=== PATIENT | female | born 1970 | race Caucasian/White ===

== ENCOUNTER 2025-06-25 14:41 | Outpatient (OUT) | payer OTHER, SELFPAY ==
--- OUTSIDE RECORDS SUMMARY | 2025-06-25 14:47 | XMS_ITS | Encounter Summary ---
Author Organization [facility] Address [address] [place] [address] Care Team Providers Care Briar Shop Supervisor Name Role Phone Hortensia Lees NP Unavailable [phone] Encounter Details Date Type Department Care Team (Late Contact Info) Description 04/16/2025 Abstract [facility] [address] [place] [address] [place] [address] Daniel Mccall DO [address] [place] [address] [place] [address] Social History Tobacco Use Types Packs/Day Years Used Date Smoking Tobacco: Every Day Cigarettes Smokeless Tobacco: Never Alcohol Use Standard Drinks/Week Comments Yes 0 (1 standard drink = 0.6 oz pur e alcohol) Comments Unknown Sex and Gender Information Value Date Recorded Sex Assigned at Not on file Legal Sex Female 6:57 PM EDT Gender Identity Not on file Sexual Orientation Not on file documented as of this encounter Plan of Treatment Upcoming Encounters Date Type Department Care Team (Late st Contact Info) Description 07/18/2025 4:00 PM EDT Consult [facility] [address] [place] [address] [place] [address] Daniel Mccall DO [address] [place] [address] Dr [place] [id number] documented as of this encounter Visit Diagnoses Not on filedocumented in this encounter Care Teams Briar Shop Supervisor Relationship Specialty Start Date End Date Hortensia Lees NP [address] [place] [address] Referring Physician 03/14/24 documented as of this encounter
--- OUTSIDE RECORDS SUMMARY | 2025-06-25 14:47 | XMS_ITS | Clinical Summary ---
Author Organization [facility] Address [address] [place] [address] Care Team Providers Care Website Developer Name Role Phone YoanaDeshaunHortensia ENVELOPE ADJUSTER Unavailable [phone] Allergies Active Allergy Reactions Criticality Noted Date Comments Sulfamethoxazole-Trimetho prim 03/14/2024 Other Reaction(s): MOUTH BURNIGAND PEELING, Mouth ulcers Medications Fetzima 120 MG extended release capsule Take 120 mg by mouth Daily 4 Active levothyroxine (Synthroid, Levoxyl) 100 MCG tablet Take 100 mcg by mouth Daily 3 Active ARIPiprazole (Abilify) 5 MG tablet Take 5 mg by mouth Daily 4 Active ALPRAZolam (Xanax) 0.25 MG tablet Take 0.25 mg by mouth 2 (two) times a day as needed for anxiety 4 Active busPIRone (Buspar) 15 MG tablet Take 15 mg by mouth in the morning and 15 mg in the evening and 15 mg before bedtime. 4 Active albuterol HFA 90 mcg/act inhaler Inhale 2 puffs every 6 (six) hours if needed 4 Active amitriptyline (Elavil) 25 MG tabletIndication s:Migraine without aura and without status migrainosus, not intractable Take 1 tablet (25 mg) by mouth Daily 1/2-1 po at bedtime 30 tablet 2 4 Active rizatriptan (Maxalt) 10 MG tabletIndication s:Migraine without aura and without status migrainosus, not intractable Take 1 tablet (10 mg) by mouth 1 (one) time if needed for migraine (may repeat x1) for up to 9 doses 1 po at onset of migraine, may repeat x1 in 2 hours prn. Max 2/day, 2 days/wk 9 tablet 2 Active Encounters Date Type Department Care Team Description 06/04/2025 4:00 [place] [address] Daniel Mccall DO Pre-op examination; Menorrhagia with regular cycle; Abnormal uterine bleeding (AUB) 04/16/2025 [place] [address] Daniel Mccall DO from Last 3 Months Family History Medical History Relation Name Comments Cancer Father Cancer Mother Relation Name Status Comments Father Mother Social History Tobacco Use Types Packs/Day Years Used Date Smoking Tobacco: Every Day Cigarettes Smokeless Tobacco: Never Tobacco Cessation:Ready to Q uit: Not Asked; Counseling Given: Not Answered Alcohol Use Standard Drinks/Week Comments Yes 0 (1 standard drink = 0.6 oz pur e alcohol) Comments Unknown Sex and Gender Information Value Date Recorded Sex Assigned at Not on file Legal Sex Female 6:57 PM EDT Gender Identity Not on file Sexual Orientation Not on file Last Filed Vital Signs Vital Sign Reading Time Taken Comments Blood Pressure 120/80 06/04/2025 4:07 PM EDT Pulse - - Temperature - - Respiratory Rate 16 03/14/2024 10:57 AM EDT Oxygen Saturation - - Inhaled Oxygen Concentration - - Weight 63.7 kg (140 lb 6.4 oz) 06/04/2025 4:07 P M EDT Height 157.5 cm (5' 2 ) 03/14/2024 10:57 AM EDT Body Mass Index 25.68 03/14/2024 10:57 AM EDT Plan of Treatment Upcoming Encounters Date Type Department Care Team (Late st Contact Info) Description 07/18/2025 4:00 [place] [id number] Daniel Mccall, [address] Austen [place], [place] [id number] Insurance [employer] Care Teams Website Developer Relationship Specialty Start Date End Date Hortensia Lees NP [address] [place] [address] Referring Physician 03/14/24
--- NOTE | 2025-06-25 15:20 | PM.PRESUREVA ---
History of Present Illness History of Present Illness Chief complaint: AUB, Menorrhagia Narrative: Patient presents for presurgical testing. Please see HPI from Dr. Mccall dated June 04, 2025. Review of Systems ROS Narrative Please see ROS from Dr. Mccall dated June 04, 2025. [facility] Medical History (Updated 06/25/25 @ 15:07 by Bela Zamarripa NP) Anemia ?D64.9 - Anemia, unspecified (ICD-10) PTSD (post-traumatic stress disorder) ?F43.10 - Post-traumatic stress disorder, unspecified (ICD-10) Panic attacks ?F41.0 - Panic disorder [episodic paroxysmal anxiety] (ICD-10) Anxiety ?F41.9 - Anxiety disorder, unspecified (ICD-10) Bronchitis ?J40 - Bronchitis, not specified as acute or chronic (ICD-10) Hypothyroidism ?E03.9 - Hypothyroidism, unspecified (ICD-10) Hypothyroidism (acquired) ?E03.9 - Hypothyroidism, unspecified (ICD-10) Migraine ?G43.909 - Migraine, unspecified, not intractable, without status migrainosus (ICD-10) Depression ?F32.A - Depression, unspecified (ICD-10) Cluster headache ?G44.009 - Cluster headache syndrome, unspecified, not intractable (ICD-10) Menorrhagia ?N92.0 - Excessive and frequent menstruation with regular cycle (ICD-10) Abnormal uterine bleeding (AUB) ?N93.9 - Abnormal uterine and vaginal bleeding, unspecified (ICD-10) Surgical History (Updated 06/25/25 @ 15:07 by Bela Zamarripa NP) History of colonoscopy ?Z98.890 - Other specified postprocedural states (ICD-10) History of arthroscopy of knee ?Z98.890 - Other specified postprocedural states (ICD-10) History of tubal ligation ?Z98.51 - Tubal ligation status (ICD-10) Family History (Updated 06/25/25 @ 15:07 by Bela Zamarripa NP) Other Family history of cancer Social History (Updated 06/25/25 @ 15:19 by eBla Zamarripa NP) Within the past year, how often did you have a drink containing alcohol: 2-4 times a month Smoking status: Current every day smoker What tobacco products do you use: cigarettes Cigarettes per day: 30 Years smoked: 20 Smoking pack-years: 30.00 Non-prescribed substance use: denies use and former substance user Non-prescribed substance use details: Past history of opioid abuse, started Suboxone 09/2024 Previous occupational history: Sprinkler Truck Driver/Factory Highest level of school completed/degree received: high school graduate Meds Home Medications and Allergies Home Medications ?Medication ?Instructions ?Recorded ?Confirmed ?Type albuterol sulfate 90 mcg/actuation 2 inh inhalation Q4H PRN shortness 06/25/25 06/25/25 History aerosol inhaler of breath or wheezing alprazolam 0.25 mg tablet 0.25 mg PO BID PRN anxiety 06/25/25 06/25/25 History aripiprazole 15 mg tablet 15 mg PO DAILY 06/25/25 06/25/25 History buprenorphine 2 mg-naloxone 0.5 mg 1 film sublingual Q24H 06/25/25 06/25/25 History sublingual film buspirone 10 mg tablet 10 mg PO TID 06/25/25 06/25/25 History levomilnacipran 120 mg capsule,24 120 mg PO DAILY 06/25/25 06/25/25 History hr,extended release (Fetzima) levothyroxine 100 mcg capsule 100 mcg PO DAILY 06/25/25 06/25/25 History ondansetron 4 mg disintegrating 4 mg PO Q8H PRN nausea and vomiting 06/25/25 06/25/25 History tablet propranolol 20 mg tablet 20 mg PO DAILY 06/25/25 06/25/25 History rizatriptan 10 mg tablet (Maxalt) See Rx Instructions PO .COMPLEX 06/25/25 06/25/25 History trazodone 50 mg tablet 50 mg PO QPM PRN sleep 06/25/25 06/25/25 History zolpidem 5 mg tablet 5 mg PO QPM PRN sleep 06/25/25 06/25/25 History Allergies Allergy/AdvReac Type Severity Reaction Status Date / Time Sulfa (Sulfonamide Allergy mouth Verified 06/25/25 14:51 Antibiotics) ulcers Exam Narrative Exam Narrative: Constitutional: Awake, alert, comfortable, well-appearing, nontoxic, interactive, vital signs as charted Head: Normocephalic, atraumatic Neck: Supple, normal appearance, normal range of motion, no meningeal signs, no lymphadenopathy Respiratory: No respiratory distress, breath sounds clear Cardiovascular: Regular rate and rhythm, strong and regular heart tones Abdomen: Nontender, normal bowel sounds, soft, no CVA tenderness Musculoskeletal: Normal gait, no swelling or edema Skin: No rashes or induration, no lesions, only visible skin inspected Neuro: No neurological deficits, normal sensation Psychiatric: Oriented ?3, normal affect Assessment and Plan Assessment and Plan (1) Menorrhagia: (2) Abnormal uterine bleeding (AUB): Plan D & C hysteroscopy, possible MyoSure scheduled with Dr. Mccall June 29, 2025.
== END 2025-06-25 14:42 | disposition home or self-care (01) ==
PROVIDERS: Visit Provider Obstetrics & Gynecology
DX: Z01.818 Encounter for other preprocedural examination (principal); N93.9 Abnormal uterine and vaginal bleeding, unspecified; N92.0 Excessive and frequent menstruation with regular cycle
CPT/HCPCS: G0463

== ENCOUNTER 2025-06-29 07:13 | Day surgery (SDC) | payer OTHER, SELFPAY ==
--- OUTSIDE RECORDS SUMMARY | 2025-06-05 12:30 | XMS_ITS ---
[facility] [address] [place] [address] Care Team Providers Care Engineer Soils Name Role Phone Lakshmi Morales Primary Care Provider [phone] Yamiletanna Breana Unavailable [phone] REASON FOR VISIT YOAV Yoana, UTI Encounters Encounter Location Date Provider Diagnosis [facility] [address] [place] [address] 06/05/2025 Lakshmi Morales Plan Of Treatment Next Appt Details Provider Name:Breana Toribio Roxiremedios matilde, 10/01/2025 04:15:00 PM, [address] [facility] [place], [address], Progress Notes * IVAN RECIODOB: 1 (55 yo F)Acc No.[id number]:06/05/2025 Progress Notes Patient: IVAN EKYS Provider: Brittney Morales :1970 A ge:55 Y S ex:Female Date:06/05/2025 Address:[address] [place] [phone] Subjective: * Chief Complaints: * 1 . YOAV Yoana, UTI. * Medical History: Objective: * Vitals: Assessment: Plan: * Treatment: * Images: * Electronic signature of Vidhya Morales on 06/29/2025 at 07:15 AM EDT Sign off status: Pending * Provider: Brittney Morales Date: 0 06/05/2025 Generated for Kayla fu/Delicia/eTransmitting on: 0 06/29/2025 07:15 AM EDT
[2025-06-25 15:16] VITALS: BP 128/85; PULSE 72; TEMP 36.3; O2SAT 96; BMI 25.0
--- OUTSIDE RECORDS SUMMARY | 2025-06-29 07:15 | XMS_ITS | Encounter Summary ---
Author Organization [facility] Address [address] [place] [address] Care Team Providers Care Drier Operator Name Role Phone Hortensia Lees NP Unavailable [phone] Encounter Details Date Type Department Care Team (Late Contact Info) Description 04/16/2025 Abstract [facility] [address] [place] [address] [place] [address] Daniel Mccall DO [address] [place] [address] [place] [address] Social History Tobacco Use Types Packs/Day Years [...] 07/18/2025 4:00 PM EDT Consult [facility] [address] [place] [address] [place] [address] Daniel Mccall DO [address] [place] [address] Dr [place] [id number] documented as of this encounter Visit Diagnoses Not on filedocumented in this encounter Care Teams Drier Operator Relationship Specialty Start Date End Date Hortensia Lees NP [address] [place] [address] Referring Physician 03/14/24 documented as of this encounter
--- OUTSIDE RECORDS SUMMARY | 2025-06-29 07:15 | XMS_ITS | Clinical Summary ---
Author Organization [facility] Address [address] [place] [address] Care Team Providers Care Pleating Machine Operator Name Role Phone YoanaDeshaunHortensia MECHANICAL MANUFACTURING ENGINEER Unavailable [phone] Allergies Active Allergy Reactions Criticality Noted Date [...] 06/04/2025 4:00 [place] [address] Daniel Mccall DO Pre-op examination; Menorrhagia with regular cycle; Abnormal uterine bleeding (AUB) 04/16/2025 [place] [id number] Daniel Mccall DO from Last 3 Months [...] 07/18/2025 4:00 [place] [id number] Daniel Mccall, [address] [place] [place], [place] [phone] Insurance [employer] Care Teams Pleating Machine Operator Relationship Specialty Start Date End Date Hortensia Lees NP [address] [place] [address] Referring Physician 03/14/24
--- OUTSIDE RECORDS SUMMARY | 2025-06-29 07:16 | XMS_ITS | Patient Health Record ---
Author Organization [facility] es Address [address] [place] [address] Care Team Providers Care Senior Quality Control Technician Name Role Phone AndrewCristinae Primary Care Provider [phone] Breana Milian Unavailable [phone] Jesus Paniagua Unavailable [phone] Hortensia Coleman Unavailable [phone] Kathy Santamaria Unavailable [phone] Jannette Gonzales Unavailable [phone] Allergies Allergen (clinical drug ingredient) Drug/Non Drug Allergy documented on EMR Reaction Allergy Type Onset Date Status sulfamethoxazole / trimethoprim Bactrim M[facility] Drug Allergy Active Results Component Value Reference Range Notes AURAL - Otolaryngology (HTRx ) Reviewed date:03/07/2025 01:27:18 PM Interpretation: Performing Lab: Notes/Report: Real-Time polymerase chain reaction (TaqMan qPCR) was utilized for detection for all tested organisms and resistance genes. Initiation of antimicrobial therapy prior to testing may affect results and can lead to the detection of non-living microorganisms. Detection of microbes must be correlated with current/recent antibiotic usage and patient signs and symptoms. Microbial sensitivity testing is not performed at this lab. Cylinder Grinder to CFU/mL equivalent thresholds were established based on studies using known CFU/mL urine specimens performed at [facility] in [place], [place]. [facility] ([address], [place] [address]; CLIA# [id number]; [employer] Alanna Herrera, PhD, [facility])). This test was developed, and its performance characteristics determined by [facility]. It has not been cleared or approved by the FDA. However, such approval/clearance is not required, as the laboratory is regulated and qualified under CLIA to perform high-complexity testing. This test is used for clinical purposes and should not be regarded as investigational or for research. *Approximate copies of target nucleic acid per &micro;L (Low: <2,500 copies/&micro;L, Moderate: 2,500-50,000 copies/&micro;L, High: >50,000 copies/&micro;L) National Infectious Disease Consensus Data Potentially effective oral antibiotics, based on presence of detected microbes, antimicrobial resistance genes, and national antimicrobial sensitivity data (see Summary Antibiogram). mecA 28.592 23.000 - 31.199 ppm mecA Detected 23.000 - 31.199 ppm ermB, C; mefA 21.897 23.000 - 27.611 ppm ermB, C; mefA Detected 23.000 - 27.611 ppm Ca albicans, glabrata, parapsilosis, tropicalis 0.000 19.961 - 24.689 ppm Ca albicans, glabrata, parapsilosis, tropicalis Not Detected 19.961 - 24.689 ppm Aspergillus flavus, fumigatus, niger, terreus 0.000 23.000 - 30.981 ppm Aspergillus flavus, fumigatus, niger, terreus Not Detected 23.000 - 30.981 ppm Streptococcus pyogenes (Grou p A strep) 0.000 19.961 - 24.689 ppm Streptococcus pyogenes (Grou p A strep) Not Detected 19.961 - 24.689 ppm Streptococcus pneumoniae 0.000 19.961 - 24.689 ppm Streptococcus pneumoniae Not Detected 19.961 - 24.689 ppm Streptococcus agalactiae (Group B Strep) 0.000 19.961 - 24.689 ppm Streptococcus agalactiae (Group B Strep) Not Detected 19.961 - 24.689 ppm Staphylococcus aureus (MRSA) 14.673 19.961 - 24. 689 ppm Staphylococcus aureus (MRSA) Detected 19.961 - 24. 689 ppm Pseudomonas aeruginosa 0.000 19.961 - 24.689 pp m Pseudomonas aeruginosa Not Detected 19.961 - 24.689 pp m Proteus mirabilis, vulgaris 0.000 19.961 - 24.6 89 ppm Proteus mirabilis, vulgaris Not Detected 19.961 - 24.6 89 ppm Moraxella catarrhalis 0.000 19.961 - 24.689 ppm Moraxella catarrhalis Not Detected 19.961 - 24.689 ppm Klebsiella pneumoniae, oxytoca 0.000 19.961 - 24.689 ppm Klebsiella pneumoniae, oxytoca Not Detected 19.961 - 24.689 ppm Varicella zoster virus (Maegan n Herpesvirus 3) 0.000 23.000 - 31.749 ppm Varicella zoster virus (Maegan n Herpesvirus 3) Not Detected 23.000 - 31.749 ppm Herpes simplex virus 1, 2 0.000 23.000 - 30.405 ppm Herpes simplex virus 1, 2 Not Detected 23.000 - 30.405 ppm Haemophilus influenzae 0.000 19.961 - 24.689 pp m Haemophilus influenzae Not Detected 19.961 - 24.689 pp m Fusobacterium nucleatum, necrophorum 0.000 19.961 - 24.689 ppm Fusobacterium nucleatum, necrophorum Not Detected 19.961 - 24.689 ppm Escherichia coli 0.000 19.961 - 24.689 ppm Escherichia coli Not Detected 19.961 - 24.689 ppm Enterobacter aerogenes, cloacae 0.000 19.961 - 24.689 ppm Enterobacter aerogenes, cloacae Not Detected 19.961 - 24.689 ppm Stella-Hunter virus 0.000 23.000 - 30.191 ppm Stella-Hunter virus Not Detected 23.000 - 30.191 ppm Adenovirus (AdenovirusCombo_3) 0.000 23.000 - 32.147 ppm Adenovirus (AdenovirusCombo_3) Not Detected 23.000 - 32.147 ppm Cutibacterium (Propionibacterium) acnes 0.000 19.961 - 24.689 ppm Cutibacterium (Propionibacterium) acnes Not Detected 19.961 - 24.689 ppm Enterococcus faecalis, faecium 0.000 19.961 - 24.689 ppm Enterococcus faecalis, faecium Not Detected 19.961 - 24.689 ppm Enterovirus (montero) 0.000 23.000 - 31.169 ppm Enterovirus (montero) Not Detected 23.000 - 31.169 ppm Fusarium oxysporum, Neocosmospora solani 0.000 23.000 - 30.331 ppm Fusarium oxysporum, Neocosmospora solani Not Detected 23.000 - 30.331 ppm Cytomegalovirus (Human Herpesvirus 5) 0.000 23.000 - 31.046 ppm Cytomegalovirus (Human Herpesvirus 5) Not Detected 23.000 - 31.046 ppm tet B, tet M 23.616 23.000 - 27.778 ppm tet B, tet M Detected 23.000 - 27.778 ppm Vitamin D 25 Hydroxy Reviewed date:05/03/2025 05:45:12 PM Interpretation: Performing Lab: Notes/Report: Vit B12 Reviewed date:05/03/2025 05:42:09 PM Interpretation: Performing Lab: Notes/Report: Testosterone F&T Reviewed date:05/03/2025 05:42:57 PM Interpretation: Performing Lab: Notes/Report: T4 & TSH Reviewed date:05/03/2025 05:41:37 PM Interpretation: Performing Lab: Notes/Report: T3 Total Reviewed date:05/03/2025 05:42:31 PM Interpretation: Performing Lab: Notes/Report: Progesterone Reviewed date:05/03/2025 05:44:28 PM Interpretation: Performing Lab: Notes/Report: Magnesium Reviewed date:05/03/2025 05:43:16 PM Interpretation: Performing Lab: Notes/Report: FSH and LH Reviewed date:05/03/2025 05:43:44 PM Interpretation: Performing Lab: Notes/Report: Estradiol Reviewed date:05/03/2025 05:44:50 PM Interpretation: Performing Lab: Notes/Report: Cortisol Reviewed date:05/03/2025 05:44:06 PM Interpretation: Performing Lab: Notes/Report: CMP Reviewed date:05/03/2025 05:41:00 PM Interpretation: Performing Lab: Notes/Report: Urinalysis un-automated Reviewed date:11/16/2024 05:28:49 PM Interpretation: Performing Lab: Notes/Report: Urine-Color yellow Appearance slightly cloudy Specific [place] 1.005 pH 7.5 Glucose neg Protein neg Occult Blood neg Bilirubin neg Urobilinogen,Semi-Qn 0.2 Nitrite, Urine neg Ketones neg WBC Esterase neg Urinalysis un-automated Reviewed date:01/29/2025 03:30:07 PM Interpretation: Performing Lab: Notes/Report: Urine-Color yellow Appearance cloudy Specific [place] 1.005 pH 7.5 Glucose neg Protein neg Occult Blood neg Bilirubin neg Urobilinogen,Semi-Qn 0.2 Nitrite, Urine neg Ketones neg WBC Esterase mod GNURI - Complicated Genitour inary Infection (HTRx) Reviewed date:11/23/2024 01:19:37 PM Interpretation: Performing Lab: Notes/Report: Real-Time polymerase chain reaction (TaqMan qPCR) was utilized for detection for all tested organisms and resistance genes. Initiation of antimicrobial therapy prior to testing may affect results and can lead to the detection of non-living microorganisms. Detection of microbes must be correlated with current/recent antibiotic usage and patient signs and symptoms. Microbial sensitivity testing is not performed at this lab. Cylinder Grinder to CFU/mL equivalent thresholds were established based on studies using known CFU/mL urine specimens performed at [facility] in [place], [place]. Testing performed by [facility] [employer] [facility] ([address] [facility] [place] [address]; CLIA# [id number]; [employer] Alanna Herrera, PhD, [facility])). This test was developed, and its performance characteristics determined by [employer]. It has not been cleared or approved by the FDA. However, such approval/clearance is not required, as the laboratory is regulated and qualified under CLIA to perform high-complexity testing. This test is used for clinical purposes and should not be regarded as investigational or for research. *Approximate copies of target nucleic acid per &micro;L (Low: <2,500 copies/&micro;L, Moderate: 2,500-50,000 copies/&micro;L, High: >50,000 copies/&micro;L) National Infectious Disease Consensus Data Potentially effective oral antibiotics, based on presence of detected microbes, antimicrobial resistance genes, and national antimicrobial sensitivity data (see Summary Antibiogram). Acinetobacter baumannii 0.000 19.961 - 24.689 p pm Acinetobacter baumannii Not Detected 19.961 - 24.689 p pm Atopobium vaginae 29.625 19.961 - 24.689 ppm Atopobium vaginae Detected 19.961 - 24.689 ppm BVAB 2,3 (bacterial vaginosi s associated bacteria 2, 3); Mobiluncus spp 0.000 19.961 - 24.689 ppm BVAB 2,3 (bacterial vaginosi s associated bacteria 2, 3); Mobiluncus spp Not Detected 19.961 - 24.689 ppm Ca albicans, parapsilosis, tropicalis 0.000 19.961 - 30.770 ppm Ca albicans, parapsilosis, tropicalis Not Detected 19.961 - 30.770 ppm Ca glabrata (Nakaseomyces glabratus) 0.000 23.000 - 32.138 ppm Ca glabrata (Nakaseomyces glabratus) Not Detected 23.000 - 32.138 ppm Ca krusei (Pichia kudriavzevii) 0.000 23.000 - 32.271 ppm Ca krusei (Pichia kudriavzevii) Not Detected 23.000 - 32.271 ppm Chlamydia trachomatis 0.000 23.000 - 31.467 ppm Chlamydia trachomatis Not Detected 23.000 - 31.467 ppm Citrobacter freundii 0.000 23.000 - 31.881 ppm Citrobacter freundii Not Detected 23.000 - 31.881 ppm Enterobacter aerogenes, cloacae 0.000 23.000 - 31.535 ppm Enterobacter aerogenes, cloacae Not Detected 23.000 - 31.535 ppm Enterococcus faecalis, faecium 0.000 26.000 - 31.575 ppm Enterococcus faecalis, faecium Not Detected 26.000 - 31.575 ppm Escherichia coli 0.000 23.000 - 28.500 ppm Escherichia coli Not Detected 23.000 - 28.500 ppm Gardnerella vaginalis 0.000 19.961 - 24.689 ppm Gardnerella vaginalis Not Detected 19.961 - 24.689 ppm Klebsiella pneumoniae, oxytoca 0.000 23.000 - 30.500 ppm Klebsiella pneumoniae, oxytoca Not Detected 23.000 - 30.500 ppm Megasphaera (Types 1, 2) 0.000 19.961 - 24.689 ppm Megasphaera (Types 1, 2) Not Detected 19.961 - 24.689 ppm Morganella morganii 0.000 19.961 - 24.689 ppm Morganella morganii Not Detected 19.961 - 24.689 ppm Neisseria gonorrhoeae 0.000 23.000 - 32.117 ppm Neisseria gonorrhoeae Not Detected 23.000 - 32.117 ppm Proteus mirabilis, vulgaris 0.000 23.000 - 28.5 00 ppm Proteus mirabilis, vulgaris Not Detected 23.000 - 28.5 00 ppm Pseudomonas aeruginosa 0.000 23.000 - 28.500 pp m Pseudomonas aeruginosa Not Detected 23.000 - 28.500 pp m Serratia marcescens 0.000 23.000 - 31.204 ppm Serratia marcescens Not Detected 23.000 - 31.204 ppm Staphylococcus aureus 0.000 26.000 - 30.902 ppm Staphylococcus aureus Not Detected 26.000 - 30.902 ppm Streptococcus agalactiae (Group B Strep) 0.000 26.000 - 32.222 ppm Streptococcus agalactiae (Group B Strep) Not Detected 26.000 - 32.222 ppm Streptococcus pyogenes (Grou p A strep) 0.000 19.961 - 24.689 ppm Streptococcus pyogenes (Grou p A strep) Not Detected 19.961 - 24.689 ppm Trichomonas vaginalis 0.000 23.000 - 32.119 ppm Trichomonas vaginalis Not Detected 23.000 - 32.119 ppm Staphylococcus epidermidis, haemolyticus, lugdunensis 0.000 19.961 - 24.689 ppm Staphylococcus epidermidis, haemolyticus, lugdunensis Not Detected 19.961 - 24.689 ppm Staphylococcus saprophyticus 0.000 19.961 - 24. 689 ppm Staphylococcus saprophyticus Not Detected 19.961 - 24. 689 ppm Mycoplasma genitalium 0.000 19.961 - 24.689 ppm Mycoplasma genitalium Not Detected 19.961 - 24.689 ppm Mycoplasma hominis 0.000 19.961 - 24.689 ppm Mycoplasma hominis Not Detected 19.961 - 24.689 ppm Ureaplasma parvum 0.000 19.961 - 24.689 ppm Ureaplasma parvum Not Detected 19.961 - 24.689 ppm Ureaplasma urealyticum 0.000 19.961 - 24.689 pp m Ureaplasma urealyticum Not Detected 19.961 - 24.689 pp m Vitamin D 25 Hydroxy Reviewed date:12/31/2024 10:20:32 AM Interpretation: Performing Lab: Notes/Report: Original Ordering Provider: [place] [address] [address] [facility] CALCIDIOL 60.1 30.0-100.0 ng/mL Performing Lab see note [facility] unless otherwise specified [address] [address] Vit B12 Reviewed date:12/31/2024 10:20:32 AM Interpretation: Performing Lab: Notes/Report: Original Ordering Provider: [place] [address] [address] [facility] COBALAMINS 1207 50-1500 pg/mL Performing Lab see note [facility] unless otherwise specified [address] [place] [address] T4 & TSH Reviewed date:12/31/2024 10:20:32 AM Interpretation: Performing Lab: Notes/Report: Original Ordering Provider: [place] [address] [address] [facility] THYROXINE 7.3 4.6-9.1 microgram/dL THYROTROPIN 11.86 0.34-5.60 mcIU/mL Performing Lab see note [facility] unless otherwise specified [address] [place], [place] [id number] Progesterone Reviewed date:12/31/2024 10:20:32 AM Interpretation: Performing Lab: Notes/Report: [facility] [address] [id number] Original Ordering Provider: ABAD IRVIN Progesterone Lvl 0.47 'F NON FOLLICULAR = 0.10 - 0.60' 'LUTEAL = 3.00 - 17.5' 'MIDLUTEAL = 3.30 - 18.6' 'POST-MENOPAUSE = 0.10 - 0.40' '-FIRST TRIMESTER = 8.30 - 66.5' 'SECOND TRIMESTER = 18.9 - 66.1' 'THIRD TRIMESTER = 35.8 - 312.4' 'MALES = 0.14 - 2.06' Performing Lab see note [facility] unless otherwise specified [address] [address] Magnesium Reviewed date:12/31/2024 10:20:32 AM Interpretation: Performing Lab: Notes/Report: [facility] [address] [place] [address] Original Ordering Provider: ABAD IRVIN MAGNESIUM 1.9 1.3-2.4 mg/dL Performing Lab see note [facility] unless otherwise specified [address] [address] eGFR Reviewed date:12/31/2024 10:20:32 AM Interpretation: Performing Lab: Notes/Report: [facility] [address] [place] [address] Original Ordering Provider: ABAD IRVIN eGFR 67 >=59 mL/min/1.73 m2 Performing Lab see note [facility] unless otherwise specified [address] [address] CMP Reviewed date:12/31/2024 10:20:32 AM Interpretation: Performing Lab: Notes/Report: [facility] [address] [place] [address] Original Ordering Provider: ABAD IRVIN GLUCOSE 90 55-199 mg/dL UREA NITROGEN 9 5-21 mg/dL CREATININE 1.0 0.5-1.3 mg/dL CALCIUM 8.9 8.9-11.1 mg/dL SODIUM 136 135-145 mmol/L POTASSIUM 4.3 3.5-5.3 mmol/L CHLORIDE 103 101-111 mmol/L CARBON DIOXIDE 26 21-31 mmol/L ALKALINE PHOSPHATASE 107 21-98 Int._Unit/L BILIRUBIN 0.4 0.0-1.1 mg/dL ALBUMIN 4.2 3.3-5.0 gm/dL PROTEIN 7.1 6.0-7.8 gm/dL ALANINE AMINOTRANSFERASE 16 6-46 Int._Unit/L ASPARTATE AMINOTRANSFERASE 21 5-43 Int._Unit /L UREA NITROGEN/CREATININE 9 10-20 No Units ANION GAP 11 6-16 mEq/L GLOBULIN 2.9 1.4-4.0 gm/dL ALBUMIN/GLOBULIN 1.4 1.1-2.2 Performing Lab see note [facility] - [facility] unless otherwise specified [address] [place] [address] GNURI - Complicated Genitour inary Infection (HTRx) Reviewed date:01/30/2025 01:08:41 PM Interpretation: Performing Lab: Notes/Report: Real-Time polymerase chain reaction (TaqMan qPCR) was utilized for detection for all tested organisms and resistance genes. Initiation of antimicrobial therapy prior to testing may affect results and can lead to the detection of non-living microorganisms. Detection of microbes must be correlated with current/recent antibiotic usage and patient signs and symptoms. Microbial sensitivity testing is not performed at this lab. Cylinder Grinder to CFU/mL equivalent thresholds were established based on studies using known CFU/mL urine specimens performed at [facility] in [place], [place]. Testing performed by [facility] ([address] [place] [address]; CLIA# [id number]; [employer] Alanna Herrera, PhD, [facility])). This test was developed, and its performance characteristics determined by [employer]. It has not been cleared or approved by the FDA. However, such approval/clearance is not required, as the laboratory is regulated and qualified under CLIA to perform high-complexity testing. This test is used for clinical purposes and should not be regarded as investigational or for research. *Approximate copies of target nucleic acid per &micro;L (Low: <2,500 copies/&micro;L, Moderate: 2,500-50,000 copies/&micro;L, High: >50,000 copies/&micro;L) National Infectious Disease Consensus Data Potentially effective oral antibiotics, based on presence of detected microbes, antimicrobial resistance genes, and national antimicrobial sensitivity data (see Summary Antibiogram). Acinetobacter baumannii 0.000 19.961 - 24.689 p pm Acinetobacter baumannii Not Detected 19.961 - 24.689 p pm Atopobium vaginae 29.296 19.961 - 24.689 ppm Atopobium vaginae Detected 19.961 - 24.689 ppm BVAB 2,3 (bacterial vaginosi s associated bacteria 2, 3); Mobiluncus spp 0.000 19.961 - 24.689 ppm BVAB 2,3 (bacterial vaginosi s associated bacteria 2, 3); Mobiluncus spp Not Detected 19.961 - 24.689 ppm Ca albicans, parapsilosis, tropicalis 0.000 19.961 - 30.770 ppm Ca albicans, parapsilosis, tropicalis Not Detected 19.961 - 30.770 ppm Ca glabrata (Nakaseomyces glabratus) 0.000 23.000 - 32.138 ppm Ca glabrata (Nakaseomyces glabratus) Not Detected 23.000 - 32.138 ppm Ca krusei (Pichia kudriavzevii) 0.000 23.000 - 32.271 ppm Ca krusei (Pichia kudriavzevii) Not Detected 23.000 - 32.271 ppm Chlamydia trachomatis 0.000 23.000 - 31.467 ppm Chlamydia trachomatis Not Detected 23.000 - 31.467 ppm Citrobacter freundii 0.000 23.000 - 31.881 ppm Citrobacter freundii Not Detected 23.000 - 31.881 ppm Enterobacter aerogenes, cloacae 0.000 23.000 - 31.535 ppm Enterobacter aerogenes, cloacae Not Detected 23.000 - 31.535 ppm Enterococcus faecalis, faecium 0.000 26.000 - 31.575 ppm Enterococcus faecalis, faecium Not Detected 26.000 - 31.575 ppm Escherichia coli 0.000 23.000 - 28.500 ppm Escherichia coli Not Detected 23.000 - 28.500 ppm Gardnerella vaginalis 0.000 19.961 - 24.689 ppm Gardnerella vaginalis Not Detected 19.961 - 24.689 ppm Klebsiella pneumoniae, oxytoca 0.000 23.000 - 30.500 ppm Klebsiella pneumoniae, oxytoca Not Detected 23.000 - 30.500 ppm Megasphaera (Types 1, 2) 0.000 19.961 - 24.689 ppm Megasphaera (Types 1, 2) Not Detected 19.961 - 24.689 ppm Morganella morganii 0.000 19.961 - 24.689 ppm Morganella morganii Not Detected 19.961 - 24.689 ppm Neisseria gonorrhoeae 0.000 23.000 - 32.117 ppm Neisseria gonorrhoeae Not Detected 23.000 - 32.117 ppm Proteus mirabilis, vulgaris 0.000 23.000 - 28.5 00 ppm Proteus mirabilis, vulgaris Not Detected 23.000 - 28.5 00 ppm Pseudomonas aeruginosa 0.000 23.000 - 28.500 pp m Pseudomonas aeruginosa Not Detected 23.000 - 28.500 pp m Serratia marcescens 0.000 23.000 - 31.204 ppm Serratia marcescens Not Detected 23.000 - 31.204 ppm Staphylococcus aureus 0.000 26.000 - 30.902 ppm Staphylococcus aureus Not Detected 26.000 - 30.902 ppm Streptococcus agalactiae (Group B Strep) 0.000 26.000 - 32.222 ppm Streptococcus agalactiae (Group B Strep) Not Detected 26.000 - 32.222 ppm Streptococcus pyogenes (Grou p A strep) 0.000 19.961 - 24.689 ppm Streptococcus pyogenes (Grou p A strep) Not Detected 19.961 - 24.689 ppm Trichomonas vaginalis 26.319 23.000 - 32.119 ppm Trichomonas vaginalis Detected 23.000 - 32.119 ppm mecA 27.917 23.000 - 31.199 ppm mecA Detected 23.000 - 31.199 ppm tet B, tet M 26.723 23.000 - 27.778 ppm tet B, tet M Detected 23.000 - 27.778 ppm Staphylococcus coagulase-negative spp (Methicillin Resistant, MRSE) 28.837 19.961 - 24.689 ppm Staphylococcus coagulase-negative spp (Methicillin Resistant, MRSE) Detected 19.961 - 24.689 ppm Staphylococcus saprophyticus 0.000 19.961 - 24. 689 ppm Staphylococcus saprophyticus Not Detected 19.961 - 24. 689 ppm Mycoplasma genitalium 0.000 19.961 - 24.689 ppm Mycoplasma genitalium Not Detected 19.961 - 24.689 ppm Mycoplasma hominis 0.000 19.961 - 24.689 ppm Mycoplasma hominis Not Detected 19.961 - 24.689 ppm Ureaplasma parvum 0.000 19.961 - 24.689 ppm Ureaplasma parvum Not Detected 19.961 - 24.689 ppm Ureaplasma urealyticum 0.000 19.961 - 24.689 pp m Ureaplasma urealyticum Not Detected 19.961 - 24.689 pp m GNURI - Complicated Genitour inary Infection (HTRx) Reviewed date:01/30/2025 01:08:41 PM Interpretation: Performing Lab: Notes/Report: Real-Time polymerase chain reaction (TaqMan qPCR) was utilized for detection for all tested organisms and resistance genes. Initiation of antimicrobial therapy prior to testing may affect results and can lead to the detection of non-living microorganisms. Detection of microbes must be correlated with current/recent antibiotic usage and patient signs and symptoms. Microbial sensitivity testing is not performed at this lab. Cylinder Grinder to CFU/mL equivalent thresholds were established based on studies using known CFU/mL urine specimens performed at [facility] in [place], [place]. Testing performed by [facility] [employer] [facility] ([address] [facility], [place] [address]; CLIA# [id number]; [employer] Alanna Herrera, PhD, [facility])). This test was developed, and its performance characteristics determined by [facility] [employer] [facility]. It has not been cleared or approved by the FDA. However, such approval/clearance is not required, as the laboratory is regulated and qualified under CLIA to perform high-complexity testing. This test is used for clinical purposes and should not be regarded as investigational or for research. *Approximate copies of target nucleic acid per &micro;L (Low: <2,500 copies/&micro;L, Moderate: 2,500-50,000 copies/&micro;L, High: >50,000 copies/&micro;L) National Infectious Disease Consensus Data Potentially effective oral antibiotics, based on presence of detected microbes, antimicrobial resistance genes, and national antimicrobial sensitivity data (see Summary Antibiogram). Acinetobacter baumannii 0.000 19.961 - 24.689 p pm Acinetobacter baumannii Not Detected 19.961 - 24.689 p pm Atopobium vaginae 29.296 19.961 - 24.689 ppm Atopobium vaginae Detected 19.961 - 24.689 ppm BVAB 2,3 (bacterial vaginosi s associated bacteria 2, 3); Mobiluncus spp 0.000 19.961 - 24.689 ppm BVAB 2,3 (bacterial vaginosi s associated bacteria 2, 3); Mobiluncus spp Not Detected 19.961 - 24.689 ppm Ca albicans, parapsilosis, tropicalis 0.000 19.961 - 30.770 ppm Ca albicans, parapsilosis, tropicalis Not Detected 19.961 - 30.770 ppm Ca glabrata (Nakaseomyces glabratus) 0.000 23.000 - 32.138 ppm Ca glabrata (Nakaseomyces glabratus) Not Detected 23.000 - 32.138 ppm Ca krusei (Pichia kudriavzevii) 0.000 23.000 - 32.271 ppm Ca krusei (Pichia kudriavzevii) Not Detected 23.000 - 32.271 ppm Chlamydia trachomatis 0.000 23.000 - 31.467 ppm Chlamydia trachomatis Not Detected 23.000 - 31.467 ppm Citrobacter freundii 0.000 23.000 - 31.881 ppm Citrobacter freundii Not Detected 23.000 - 31.881 ppm Enterobacter aerogenes, cloacae 0.000 23.000 - 31.535 ppm Enterobacter aerogenes, cloacae Not Detected 23.000 - 31.535 ppm Enterococcus faecalis, faecium 0.000 26.000 - 31.575 ppm Enterococcus faecalis, faecium Not Detected 26.000 - 31.575 ppm Escherichia coli 0.000 23.000 - 28.500 ppm Escherichia coli Not Detected 23.000 - 28.500 ppm Gardnerella vaginalis 0.000 19.961 - 24.689 ppm Gardnerella vaginalis Not Detected 19.961 - 24.689 ppm Klebsiella pneumoniae, oxytoca 0.000 23.000 - 30.500 ppm Klebsiella pneumoniae, oxytoca Not Detected 23.000 - 30.500 ppm Megasphaera (Types 1, 2) 0.000 19.961 - 24.689 ppm Megasphaera (Types 1, 2) Not Detected 19.961 - 24.689 ppm Morganella morganii 0.000 19.961 - 24.689 ppm Morganella morganii Not Detected 19.961 - 24.689 ppm Neisseria gonorrhoeae 0.000 23.000 - 32.117 ppm Neisseria gonorrhoeae Not Detected 23.000 - 32.117 ppm Proteus mirabilis, vulgaris 0.000 23.000 - 28.5 00 ppm Proteus mirabilis, vulgaris Not Detected 23.000 - 28.5 00 ppm Pseudomonas aeruginosa 0.000 23.000 - 28.500 pp m Pseudomonas aeruginosa Not Detected 23.000 - 28.500 pp m Serratia marcescens 0.000 23.000 - 31.204 ppm Serratia marcescens Not Detected 23.000 - 31.204 ppm Staphylococcus aureus 0.000 26.000 - 30.902 ppm Staphylococcus aureus Not Detected 26.000 - 30.902 ppm Streptococcus agalactiae (Group B Strep) 0.000 26.000 - 32.222 ppm Streptococcus agalactiae (Group B Strep) Not Detected 26.000 - 32.222 ppm Streptococcus pyogenes (Grou p A strep) 0.000 19.961 - 24.689 ppm Streptococcus pyogenes (Grou p A strep) Not Detected 19.961 - 24.689 ppm Trichomonas vaginalis 26.319 23.000 - 32.119 ppm Trichomonas vaginalis Detected 23.000 - 32.119 ppm mecA 27.917 23.000 - 31.199 ppm mecA Detected 23.000 - 31.199 ppm tet B, tet M 26.723 23.000 - 27.778 ppm tet B, tet M Detected 23.000 - 27.778 ppm Staphylococcus coagulase-negative spp (Methicillin Resistant, MRSE) 28.837 19.961 - 24.689 ppm Staphylococcus coagulase-negative spp (Methicillin Resistant, MRSE) Detected 19.961 - 24.689 ppm Staphylococcus saprophyticus 0.000 19.961 - 24. 689 ppm Staphylococcus saprophyticus Not Detected 19.961 - 24. 689 ppm Mycoplasma genitalium 0.000 19.961 - 24.689 ppm Mycoplasma genitalium Not Detected 19.961 - 24.689 ppm Mycoplasma hominis 0.000 19.961 - 24.689 ppm Mycoplasma hominis Not Detected 19.961 - 24.689 ppm Ureaplasma parvum 0.000 19.961 - 24.689 ppm Ureaplasma parvum Not Detected 19.961 - 24.689 ppm Ureaplasma urealyticum 0.000 19.961 - 24.689 pp m Ureaplasma urealyticum Not Detected 19.961 - 24.689 pp m GNURI - Genitourinary Infect ion (HTRx) Reviewed date:08/06/2024 12:05:46 PM Interpretation: Performing Lab: Notes/Report: Real-Time polymerase chain reaction (TaqMan qPCR) was utilized for detection for all tested organisms and resistance genes. COVID-19 testing separately performed using [employer] COVID-19 Combo kit. Initiation of antimicrobial therapy prior to testing may affect results and can lead to the detection of non-living microorganisms. Detection of microbes must be correlated with current/recent antibiotic usage and patient signs and symptoms. Microbial sensitivity testing is not performed at this lab. Cylinder Grinder to CFU/mL equivalent thresholds were established based on studies using known CFU/mL urine specimens performed at [facility] in [place], [place]. [facility] ([address] [facility] [place] [address]; CLIA# [id number]; [employer] Alanna Herrera, PhD, [facility])). This test was developed, and its performance characteristics determined by [facility]. It has not been cleared or approved by the FDA. However, such approval/clearance is not required, as the laboratory is regulated and qualified under CLIA to perform high-complexity testing. This test is used for clinical purposes and should not be regarded as investigational or for research. *Approximate copies of target nucleic acid per &micro;L (Low: <2,500 copies/&micro;L, Moderate: 2,500-50,000 copies/&micro;L, High: >50,000 copies/&micro;L) National Infectious Disease Consensus Data Potentially effective oral antibiotics, based on presence of detected microbes, antimicrobial resistance genes, and national antimicrobial sensitivity data (see Summary Antibiogram). Acinetobacter baumannii 0.000 19.961 - 24.689 p pm Acinetobacter baumannii Not Detected 19.961 - 24.689 p pm Atopobium vaginae 0.000 19.961 - 24.689 ppm Atopobium vaginae Not Detected 19.961 - 24.689 ppm BVAB 2,3 (bacterial vaginosi s associated bacteria 2, 3); Mobiluncus spp 0.000 19.961 - 24.689 ppm BVAB 2,3 (bacterial vaginosi s associated bacteria 2, 3); Mobiluncus spp Not Detected 19.961 - 24.689 ppm Ca albicans, parapsilosis, tropicalis 0.000 19.961 - 30.770 ppm Ca albicans, parapsilosis, tropicalis Not Detected 19.961 - 30.770 ppm Ca glabrata 0.000 23.000 - 32.138 ppm Ca glabrata Not Detected 23.000 - 32.138 ppm Ca krusei 0.000 23.000 - 32.271 ppm Ca krusei Not Detected 23.000 - 32.271 ppm Chlamydia trachomatis 0.000 23.000 - 31.467 ppm Chlamydia trachomatis Not Detected 23.000 - 31.467 ppm Citrobacter freundii 0.000 23.000 - 31.881 ppm Citrobacter freundii Not Detected 23.000 - 31.881 ppm Enterobacter aerogenes, cloacae 0.000 23.000 - 31.535 ppm Enterobacter aerogenes, cloacae Not Detected 23.000 - 31.535 ppm Enterococcus faecalis, faecium 0.000 26.000 - 31.575 ppm Enterococcus faecalis, faecium Not Detected 26.000 - 31.575 ppm Escherichia coli 13.809 23.000 - 28.500 ppm Escherichia coli Detected 23.000 - 28.500 ppm Gardnerella vaginalis 0.000 19.961 - 24.689 ppm Gardnerella vaginalis Not Detected 19.961 - 24.689 ppm Klebsiella pneumoniae, oxytoca 0.000 23.000 - 30.500 ppm Klebsiella pneumoniae, oxytoca Not Detected 23.000 - 30.500 ppm Megasphaera (Types 1, 2) 0.000 19.961 - 24.689 ppm Megasphaera (Types 1, 2) Not Detected 19.961 - 24.689 ppm Morganella morganii 0.000 19.961 - 24.689 ppm Morganella morganii Not Detected 19.961 - 24.689 ppm Neisseria gonorrhoeae 0.000 23.000 - 32.117 ppm Neisseria gonorrhoeae Not Detected 23.000 - 32.117 ppm Proteus mirabilis, vulgaris 0.000 23.000 - 28.5 00 ppm Proteus mirabilis, vulgaris Not Detected 23.000 - 28.5 00 ppm Pseudomonas aeruginosa 0.000 23.000 - 28.500 pp m Pseudomonas aeruginosa Not Detected 23.000 - 28.500 pp m Serratia marcescens 0.000 23.000 - 31.204 ppm Serratia marcescens Not Detected 23.000 - 31.204 ppm Staphylococcus aureus 0.000 26.000 - 30.902 ppm Staphylococcus aureus Not Detected 26.000 - 30.902 ppm Streptococcus agalactiae (Group B Strep) 0.000 26.000 - 32.222 ppm Streptococcus agalactiae (Group B Strep) Not Detected 26.000 - 32.222 ppm Streptococcus pyogenes (Grou p A strep) 0.000 19.961 - 24.689 ppm Streptococcus pyogenes (Grou p A strep) Not Detected 19.961 - 24.689 ppm Trichomonas vaginalis 0.000 23.000 - 32.119 ppm Trichomonas vaginalis Not Detected 23.000 - 32.119 ppm ermB, C; mefA 16.827 23.000 - 27.611 ppm ermB, C; mefA Detected 23.000 - 27.611 ppm mecA 27.424 23.000 - 31.199 ppm mecA Detected 23.000 - 31.199 ppm tet B, tet M 21.422 23.000 - 27.778 ppm tet B, tet M Detected 23.000 - 27.778 ppm Staphylococcus coagulase-negative spp (Methicillin Resistant, MRSE) 28.307 19.961 - 24.689 ppm Staphylococcus coagulase-negative spp (Methicillin Resistant, MRSE) Detected 19.961 - 24.689 ppm Staphylococcus saprophyticus 0.000 19.961 - 24. 689 ppm Staphylococcus saprophyticus Not Detected 19.961 - 24. 689 ppm Mycoplasma genitalium 0.000 19.961 - 24.689 ppm Mycoplasma genitalium Not Detected 19.961 - 24.689 ppm Mycoplasma hominis 0.000 19.961 - 24.689 ppm Mycoplasma hominis Not Detected 19.961 - 24.689 ppm Ureaplasma parvum 0.000 19.961 - 24.689 ppm Ureaplasma parvum Not Detected 19.961 - 24.689 ppm Ureaplasma urealyticum 25.827 19.961 - 24.689 pp m Ureaplasma urealyticum Detected 19.961 - 24.689 pp m WOUND - Chronic Wound/Ulcer (HTRx) Reviewed date:08/06/2024 12:05:25 PM Interpretation: Performing Lab: Notes/Report: tet B, tet M 24.378 23.000 - 27.778 ppm tet B, tet M Detected 23.000 - 27.778 ppm mecA 22.783 23.000 - 31.199 ppm mecA Detected 23.000 - 31.199 ppm dfr (A1, A5), sul (1,2) 25.625 23.000 - 27.000 p pm dfr (A1, A5), sul (1,2) Detected 23.000 - 27.000 p pm ermB, C; mefA 26.598 23.000 - 27.611 ppm ermB, C; mefA Detected 23.000 - 27.611 ppm Ca albicans, glabrata, parapsilosis, tropicalis 0.000 19.961 - 24.689 ppm Ca albicans, glabrata, parapsilosis, tropicalis Not Detected 19.961 - 24.689 ppm Aspergillus flavus, fumigatus, niger, terreus 0.000 23.000 - 30.981 ppm Aspergillus flavus, fumigatus, niger, terreus Not Detected 23.000 - 30.981 ppm Trichosporon mucoides, asahii 0.000 23.000 - 31 .352 ppm Trichosporon mucoides, asahii Not Detected 23.000 - 31 .352 ppm Trichophyton mentagrophytes/interdigitale, rubrum, soudanense, terrestre, tonsurans, verrucosum, violaceum; Microsporum audouinii, canis, gypseum 28.447 23.000 - 28.500 ppm Trichophyton mentagrophytes/interdigitale, rubrum, soudanense, terrestre, tonsurans, verrucosum, violaceum; Microsporum audouinii, canis, gypseum Detected 23.000 - 28.500 ppm Malassezia furfur, restricta , sympodialis, globosa 26.655 23.000 - 30.054 ppm Malassezia furfur, restricta , sympodialis, globosa Detected 23.000 - 30.054 ppm Fusarium spp (oxysporum, solani) 0.000 23.000 - 30.331 ppm Fusarium spp (oxysporum, solani) Not Detected 23.000 - 30.331 ppm Varicella zoster virus (VZV, Human Herpesvirus 3) 0.000 23.000 - 31.749 ppm Varicella zoster virus (VZV, Human Herpesvirus 3) Not Detected 23.000 - 31.749 ppm Streptococcus pyogenes (Grou p A strep) 0.000 19.961 - 24.689 ppm Streptococcus pyogenes (Grou p A strep) Not Detected 19.961 - 24.689 ppm Streptococcus pneumoniae 0.000 19.961 - 24.689 ppm Streptococcus pneumoniae Not Detected 19.961 - 24.689 ppm Streptococcus agalactiae (Group B Strep) 29.930 19.961 - 24.689 ppm Streptococcus agalactiae (Group B Strep) Detected 19.961 - 24.689 ppm Staphylococcus aureus 0.000 19.961 - 24.689 ppm Staphylococcus aureus Not Detected 19.961 - 24.689 ppm Staphylococcus coagulase-negative spp (Methicillin Resistant, MRSE) 22.416 19.961 - 24.689 ppm Staphylococcus coagulase-negative spp (Methicillin Resistant, MRSE) Detected 19.961 - 24.689 ppm Pseudomonas aeruginosa 0.000 19.961 - 24.689 pp m Pseudomonas aeruginosa Not Detected 19.961 - 24.689 pp m Proteus mirabilis, vulgaris 0.000 19.961 - 24.6 89 ppm Proteus mirabilis, vulgaris Not Detected 19.961 - 24.6 89 ppm Klebsiella pneumoniae, oxytoca 0.000 19.961 - 24.689 ppm Klebsiella pneumoniae, oxytoca Not Detected 19.961 - 24.689 ppm Haemophilus influenzae 0.000 19.961 - 24.689 pp m Haemophilus influenzae Not Detected 19.961 - 24.689 pp m Escherichia coli 0.000 19.961 - 24.689 ppm Escherichia coli Not Detected 19.961 - 24.689 ppm Clostridium perfringens, novyi, septicum 0.000 19.961 - 24.689 ppm Clostridium perfringens, novyi, septicum Not Detected 19.961 - 24.689 ppm Cutibacterium (Propionbacterium) acnes 22.963 19.961 - 24.689 ppm Cutibacterium (Propionbacterium) acnes Detected 19.961 - 24.689 ppm Bacteroides fragilis, vulgatus 0.000 19.961 - 24.689 ppm Bacteroides fragilis, vulgatus Not Detected 19.961 - 24.689 ppm Corynebacterium jeikeium, striatum, tuberculostearicum 24.164 19.961 - 24.689 ppm Corynebacterium jeikeium, striatum, tuberculostearicum Detected 19.961 - 24.689 ppm Vibrio cholerae, parahaemolyticus, vulnificus 0.000 23.000 - 31.296 ppm Vibrio cholerae, parahaemolyticus, vulnificus Not Detected 23.000 - 31.296 ppm Salmonella enterica 0.000 19.961 - 24.689 ppm Salmonella enterica Not Detected 19.961 - 24.689 ppm Mycoplasma genitalium, hominis 0.000 19.961 - 24.689 ppm Mycoplasma genitalium, hominis Not Detected 19.961 - 24.689 ppm Enterococcus faecalis, faecium 0.000 19.961 - 24.689 ppm Enterococcus faecalis, faecium Not Detected 19.961 - 24.689 ppm Enterobacter aerogenes, cloacae 0.000 19.961 - 24.689 ppm Enterobacter aerogenes, cloacae Not Detected 19.961 - 24.689 ppm Serratia marcescens 0.000 19.961 - 24.689 ppm Serratia marcescens Not Detected 19.961 - 24.689 ppm Citrobacter freundii 0.000 19.961 - 24.689 ppm Citrobacter freundii Not Detected 19.961 - 24.689 ppm Epidermophyton floccosum 0.000 23.000 - 31.114 ppm Epidermophyton floccosum Not Detected 23.000 - 31.114 ppm Acinetobacter baumannii 0.000 19.961 - 24.689 p pm Acinetobacter baumannii Not Detected 19.961 - 24.689 p pm Herpes simplex virus 1 0.000 23.000 - 32.355 pp m Herpes simplex virus 1 Not Detected 23.000 - 32.355 pp m Herpes simplex virus 2 0.000 23.000 - 31.433 pp m Herpes simplex virus 2 Not Detected 23.000 - 31.433 pp m Peptostreptococcus anaerobius, Peptoniphilus asaccharolyticus, Finegoldia magna, Anaerococcus prevotii 23.878 19.961 - 24.689 ppm Peptostreptococcus anaerobius, Peptoniphilus asaccharolyticus, Finegoldia magna, Anaerococcus prevotii Detected 19.961 - 24.689 ppm Urinalysis automated Reviewed date:08/02/2024 06:06:35 PM Interpretation: Performing Lab: Notes/Report: Urine-Color yellow Appearance cloudy Specific [place] 1.015 pH 7.0 Glucose neg Protein neg Occult Blood neg Bilirubin neg Urobilinogen,Semi-Qn 1 Nitrite, Urine pos Ketones neg WBC Esterase neg Cortisol Reviewed date:12/31/2024 10:20:49 AM Interpretation: Performing Lab: Notes/Report: Original Ordering Provider: [place] [address] [place] [address] Laboratory CORTISOL 12.5 6.2-19.4 microgram/dL Please Note: The reference interval and flagging for this test is for an AM collection. If this is a PM collection please use: Cortisol PM: 2.3-11.9 Performed at: [address] [id number] PhD Matt Branham Performing Lab see note UNK - [facility] unless otherwise specified [address] [place] [address] Estradiol Reviewed date:12/31/2024 10:20:32 AM Interpretation: Performing Lab: Notes/Report: [facility] [address] [place] [address] Original Ordering Provider: ABAD IRVIN ESTRADIOL 105.0 Adult Female Range Follicular phase 12.5 - 166.0 Ovulation phase 85.8 - 498.0 Luteal phase 43.8 - 211.0 Postmenopausal <6.0 - 54.7 1st trimester 215.0 - >4300.0 Melia ECLIA methodology Performed at: [address] [id number] PhD Matt Branham Performing Lab see note [facility] unless otherwise specified [address] [place] [address] FSH and LH Reviewed date:12/31/2024 10:20:32 AM Interpretation: Performing Lab: Notes/Report: [facility] [address] [id number] Original Ordering Provider: ABAD IRVIN FOLLITROPIN 5.5 Adult Female Range Follicular phase 3.5 - 12.5 Ovulation phase 4.7 - 21.5 Luteal phase 1.7 - 7.7 Postmenopausal 25.8 - 134.8 Performed at: [address] [id number] PhD Matt Branham LUTROPIN 6.3 Adult Female Range Follicular phase 2.4 - 12.6 Ovulation phase 14.0 - 95.6 Luteal phase 1.0 - 11.4 Postmenopausal 7.7 - 58.5 Performing Lab see note [facility] unless otherwise specified [address] [place] [address] T3 Total Reviewed date:12/31/2024 10:20:32 AM Interpretation: Performing Lab: Notes/Report: [facility] [address] [place], [place] [id number] Original Ordering Provider: ABAD IRVIN TRIIODOTHYRONINE 87 71-180 ng/dL Performed at: [address] [id number] PhD Matt Branham Performing Lab see note [facility] unless otherwise specified [address] [place] [address] Testosterone F&T Reviewed date:12/31/2024 10:20:32 AM Interpretation: Performing Lab: Notes/Report: [facility] [address] [place] [address] Original Ordering Provider: ABAD IRVIN TESTOSTERONE.FREE 1.0 0.0-4.2 pg/mL Performed at: [facility] [address] [place], [place] [id number] PhD Matt Branham Performed at: [facility] [address] [id number] MD Inderjit Gutierrez TESTOSTERONE 12 4-50 ng/dL Performing Lab see note [facility] unless otherwise specified [address] [place] [id number] Reason For Referral Reason PT CALLED 3X Pleas e send culture results from [facility] from leg Diagnosis 1 Pruritic rash (L28.2 ) Referral Organization [facility] Referring Provider First Name Hortensia Referring Provider Last Name Jared Referring Provider Speciality Family [facility] parishice Referred Provider [facility] Referred Provider Specialty Dermatology Referral Priority Routine Medications Medication SIG (Take, Route, Frequency, Duration) Notes Start Date End Date Status Synthroid 88 MCG 1 tablet in the morning on an empty stomach Orally Once a day; Duration: 90 days Active Omeprazole Active Ibuprofen 800 MG 1 tablet with food or milk as needed Orally Three times a day 12/23/2023 Active busPIRone HCl 10 MG TAKE 2 TABLETS BY MOUTH THREE TIMES DAILY; Duration: 30 days 08/24/2025 Active ALPRAZolam 0.5 MG 1 tablet Orally once a day at bedtime; Duration: 10 days 03/07/2025 Not-Taking traZODone HCl 50 MG 1-2 tablets at night for sleep Orally Once a day; Duration: 30 days Active Propranolol HCl 20 MG 1 tablet on an empty stomach Orally every 12 hrs; Duration: 30 days Active Albuterol Sulfate HFA 108 (90 Base) MCG/ACT inhale 2 puffs by mouth and INTO THE LUNGS every 6 hours; Duration: 24 Active methylPREDNISolone 4 MG as directed Oral ly as directed; Duration: 6 days 11/26/2023 Not-Taking ALPRAZolam 0.25 MG 1 tablet as needed Orally Twice a day; Duration: 30 days 06/25/2025 Active Clotrimazole 1 % 1 application Externally Twice a day; Duration: 14 days 01/09/2025 Active Triamcinolone Acetonide 0.5 % 1 application Externally once a day; Duration: 5 days 01/09/2025 Active Ambien 5 MG 1 tablet at bedtime as needed Orally Once a day; Duration: 30 days 06/25/2025 08/12/2025 Active Fetzima 120 MG TAKE 1 CAPSULE BY MOUTH DAILY; Duration: 30 days Active ARIPiprazole 15 MG TAKE 1 TABLET BY MOUTH DAILY; Duration: 30 days Active Social History Tobacco Use: Social History Observation Description Date Details (start date - stop date) Current Smoker NA - NA AUDIT-C (Standard) Question Answer Notes Did you have a drink containing alcohol in the p ast year? No Points 0 Interpretation Negative Tobacco Control (Standard) Question Answer Notes Tobacco use: Current smoker How often do you smoke cigarettes? Every day How many cigarettes a day do you smoke? 11-20 How soon after you wake up do you smoke your fir st cigarette? 31-60 minutes Are you interested in quitting? Not ready to el t Section Notes: Pt drinks 1-2 Ed's QD. Pt drinks 1-2 Ed's QD. Pt drinks 1-2 Ed's QD. Pt drinks 1-2 Ed's QD. Pt drinks 1-2 Ed's QD. Pt drinks 1-2 Ed's QD. Pt drinks 1-2 Ed's QD. Pt drinks 1-2 Ed's QD. Pt drinks 1-2 Ed's QD. Pt drinks 1-2 Ed's QD. Pt drinks 1-2 Ed's QD. Pt drinks 1-2 Ed's QD. Pt drinks 1-2 Ed's QD. Pt drinks 1-2 Ed's QD. Pt drinks 1-2 Ed's QD. Pt drinks 1-2 Ed's QD. Pt drinks 1-2 Ed's QD. Pt drinks 1-2 Ed's QD. Pt drinks 1-2 Ed's QD. Pt drinks 1-2 Ed's QD. Pt drinks 1-2 Ed's QD. Pt drinks 1-2 Ed's QD. Pt drinks 1-2 Ed's QD. Pt drinks 1-2 Ed's QD. Pt drinks 1-2 Ed's QD. Problems Problem Type SNOMED Code ICD Code Onset Dates Problem Status W/U Status Risk Notes Problem Tobacco user (324211808) Nicotine dependence, unspecified, uncomplicated (F17.200) Active confirmed Problem Menstrual disorder (613228593) Irregular menses (N92.6) Active confirmed Problem Chronic insomnia (496347061) Chronic insomnia (F51.04) Active confirmed Problem Chronic fatigue syndrome (02541464) Chronic fatigue (R53.82) Active confirmed Problem Acquired hypothyroidism (816206415) Acquired hypothyroidism (E03.9) Active confirmed Problem Posttraumatic stress disorder (61161158) PTSD (post-traumatic stress disorder) (F43.10) Active confirmed Problem Insomnia disorder related to another mental disorder (58487406) Psychophysiological insomnia (F51.04) Active confirmed Problem Episodic mood disorder (35532805459279) Episodic mood disorder (F39) Active confirmed Problem Migraine with aura (8408533) Migraine with aura and without status migrainosus, not intractable (G43.109) Active confirmed Problem Generalized anxiety disorder (61531851) ANUEL (generalized anxiety disorder) (F41.1) Active confirmed Problem Methicillin resistant Staphylococcus aureus infection (102670096) MRSA infection (A49.02) Active confirmed Vital Signs Heart Rate 91 /min 06/25/2025 Temperature 97.6 degrees Fahrenheit 05/29/2025 Oximetry 92 % 06/25/2025 Blood pressure diastolic 80 mm Hg 06/25/2025 Height 62 in 06/25/2025 Blood pressure systolic 118 mm Hg 06/25/2025 Weight 136.6 lbs 06/25/2025 BMI 24.98 kg/m2 06/25/2025 Encounters Encounter Location Date Provider Diagnosis [facility] [address] [place] [address] 08/06/2024 Hortensia Coleman Multiple-resistant Staphylococcus aureus infection B95.7 ; History of methicillin resistant Staph aureus Z86.14 and Cutaneous fungal infection B36.9 [facility] [place] [address] 08/07/2024 Hortensia Coleman [facility] [address] [place] [address] 08/29/2024 Hortensia Coleman [facility] [place] [address] 09/11/2024 Hortensia Coleman Cutaneous fungal infection B36.9 [facility] [address] [place] [address] 11/02/2024 Hortensia Coleman [facility] [address] [place] [address] 11/21/2024 Hortensia Coleman [facility] [address] [place] [address] 12/29/2024 Hortensia Coleman [facility] [address] [place] [address] 01/01/2025 Hortensia Coleman [place] [address] [place] [address] 01/03/2025 Hortensia Coleman Acquired hypothyroidism E03.9 [facility] [address] [place] [address] 01/04/2025 Hortensia Maguiresoledad [address] [place] [address] 01/08/2025 Hortnesia Coleman [place] [address] [place] [address] 01/08/2025 Hortensia Coleman [address] [place] [address] 01/09/2025 Hortensia Coleman [place] [address] [place] [address] 01/09/2025 Breana Slingwine Episodic mood disord er 9 [facility] [address] [place] [address] 01/11/2025 Breana Slingwine Episodic mood disord er 9 [facility] [place] [address] [place] [address] 01/15/2025 Hortensia Coleman [facility] [address] [place] [address] 01/17/2025 Breana Slingcucae [facility] [address] [place] [address] 01/30/2025 Hortensia Coleman [place] [address] [place] [address] 02/05/2025 Breana Slingwine [facility] [address] [place] [address] 02/07/2025 Breana Slingwine [facility] [address] [place] [address] 02/15/2025 Breana Slingwine [facility] [address] [place] [address] 03/07/2025 Hortensia Coleman MRSA infection A49.02 [facility] [address] [place] [address] 03/07/2025 Hortensia Coleman Chronic insomnia F51.04 [facility] [address] [place] [address] 04/19/2025 Breana Slingwine ANUEL (generalized anx iety disorder) F41.1 and Psychophysiological insomnia F51.04 [facility] [address] [place] [address] 06/12/2025 Breana Slingwine ANUEL (generalized anx iety disorder) F41.1 and Psychophysiological insomnia F51.04 [facility] [address] [place] [address] 06/14/2025 Breana Slingwine Episodic mood disord er F39 [facility] [address] [place] [address] 06/18/2025 Breana Slingwine [facility] [address] [place] [address] 06/19/2025 Breana Slingwine [facility] [address] [place] [address] 06/25/2025 Lakshmi Morales Acquired hypothyroid ism E03.9 [facility] [address] [place] [address] 08/02/2024 Hortensia Coleman Acute UTI N39.0 ; Pruritic rash L28.2 and Acquired hypothyroidism E03.9 [facility] [address] [facility] [place] [id number] 11/16/2024 Hortensia Coleman Pruritic rash L28.2 ; History of UTI Z87.440 and Nicotine dependence, unspecified, uncomplicated F17.[address] [address] 01/16/2025 Jannette Christian Ear infection H66.90 and Nicotine dependence, unspecified, uncomplicated F17.[address] [address] 01/29/2025 Hortensia Coleman Dysuria R30.0 ; Bronchitis J40 and Acute cystitis without hematuria N30.[address] [address] 03/06/2025 Hortensia Coleman Other infective acute otitis externa of both ears H60.[address] [address] 12/13/2024 Hortensia Coleman Nicotine dependence, unspecified, uncomplicated F17.200 ; Chronic fatigue R53.82 ; Hair thinning L65.9 ; Irregular menses N92.6 ; Nausea R11.0 and Viral gastroenteritis A08.[address] [address] 01/05/2025 [facility] R53.82 and Acquired hypothyroidism E03.[address] [address] 05/29/2025 Lakshmi Morales Bronchitis J40 and A cute UTI N39.[address] [address] 06/25/2025 Breana Slingwine PTSD (post-traumatic stress disorder) F43.10 ; Episodic mood disorder F39 ; ANUEL (generalized anxiety disorder) F41.1 and Psychophysiological insomnia F51.[address] [address] 03/02/2025 Breana Slingwine PTSD (post-traumatic stress disorder) F43.10 ; ANUEL (generalized anxiety disorder) F41.1 ; Episodic mood disorder F39 and Psychophysiological insomnia F51.04 [address] [address] 11/22/2024 Breana Slingwine PTSD (post-traumatic stress disorder) F43.10 ; ANUEL (generalized anxiety disorder) F41.1 and Episodic mood disorder F39 [address] [place] [address] 01/31/2025 Breana Slingwine PTSD (post-traumatic stress disorder) F43.10 ; ANUEL (generalized anxiety disorder) F41.1 and Episodic mood disorder F39 [address] [place] [address] 01/03/2025 Breana Slingwine PTSD (post-traumatic stress disorder) F43.10 ; ANUEL (generalized anxiety disorder) F41.1 and Episodic mood disorder F39 [address] [place] [address] 07/13/2024 Breana Slingwine PTSD (post-traumatic stress disorder) F43.10 ; ANUEL (generalized anxiety disorder) F41.1 and Episodic mood disorder F39 [address] [place] [address] 04/23/2025 Breana Slingwine PTSD (post-traumatic stress disorder) F43.10 ; ANUEL (generalized anxiety disorder) F41.1 ; Episodic mood disorder F39 and Psychophysiological insomnia F51.04 [address] [place] [address] 03/01/2025 Jesus Paniagua [facility] [address] [facility] [facility] [place] [address] 11/29/2024 Jesus Paniagua [address] [place] [address] 09/14/2024 Jesus Paniagua [facility] [address] [facility] [place] [place] [address] 07/03/2024 Jesus Paniagua Assessments Encounter Date Diagnosis (ICD Code) Assessment Notes Treatment Notes Treatment Clinical Notes Section Notes 01/16/2025 Ear infection (ICD-1 0 - H66.90) Ear infections are often a secondary infection caused from an URI, teething or allergies. Take medication as directed. Complete all doses, even if symptoms improve quickly. Follow up with office if no improvement of symptoms within the next 7 days. Tylenol may help with discomfort. start antibiotics and finish even if feeling better. 05/29/2025 Bronchitis (ICD-10 - J40) Conitnue albuterol MDI PRN as directed. I encourage patient to use inhaler. She admits she has not been using. Continue Prednisone until gone. She does state she had similiar diagnosis several months ago. She did quit smoking 3 months ago. 05/29/2025 Acute UTI (ICD-10 - N39.0) Increase fluids. Continue Keflex until completed. 06/25/2025 Acquired hypothyroidism (ICD-10 - E03.9) 01/05/2025 Chronic fatigue (ICD-10 - R53.82) 01/05/2025 Acquired hypothyroidism (ICD-10 - E03.9) Discussed lab reeulst today and made recommendations for patient to take magnesium supplement and to increase dose of thyroid medication and will follow up in 3 months to see how patient is doing. We will recheck labs at that time. 09/11/2024 Cutaneous fungal infection (ICD-10 - B36.9) 03/02/2025 PTSD (post-traumatic stress disorder) (ICD-10 - F43.10) 03/06/2025 Other infective acut e otitis externa of both ears (ICD-10 - H60.393) Use medication as directed. Infection appears to be isolated to canals only. Recommend no swimming for the next few days. Culute was taken of area due to the amount of drainage present. Will call once we have results 03/07/2025 MRSA infection (ICD- 10 - A49.02) 03/07/2025 Chronic insomnia (ICD-10 - F51.04) 04/19/2025 ANUEL (generalized anxiety disorder) (ICD-10 - F41.1) 04/23/2025 PTSD (post-traumatic stress disorder) (ICD-10 - F43.10) 06/12/2025 ANUEL (generalized anxiety disorder) (ICD-10 - F41.1) 06/14/2025 Episodic mood disord er (ICD-10 - F39) 06/25/2025 PTSD (post-traumatic stress disorder) (ICD-10 - F43.10) 11/22/2024 PTSD (post-traumatic stress disorder) (ICD-10 - F43.10) Educated on new antidepressant. Made aware of Black Box Warning that it can increase suicidal thoughts, especially in minors. If this happens go to the ER. Make the office aware or go to the ER, if you experience seizures or an increase in activity and irritability. Made aware to not abruptly stop medication. Medication can cause headache and nausea. . Denies suicidal or homicidal ideation or plan. No morbid thoughts. Interpersonal issues discussed. Support provided Insight oriented/ Behavior modifying/ Supportive therapy . 08/02/2024 Pruritic rash (ICD-1 0 - L28.2) Culture taken today of area to see if we can see what is causing this to return will call once we have results. 08/02/2024 Acute UTI (ICD-10 - N39.0) Take medication as directed. Urine analysis shows abnormalities today in office. Urine culture will be sent to lab. Will call with results if resistance present to antibiotic. Increase fluid intake. Follow hygiene guidelines such as wiping front to back, avoid using perfumed lotions, bath beads, bubble bath. Prevention tips include urinating after sexual intercourse. Follow up with our office or piece dyeing machine tender if no improvement of symptoms. 07/13/2024 PTSD (post-traumatic stress disorder) (ICD-10 - F43.10) 01/31/2025 PTSD (post-traumatic stress disorder) (ICD-10 - F43.10) 01/03/2025 PTSD (post-traumatic stress disorder) (ICD-10 - F43.10) Educated on antidepressant. Made aware of Black Box Warning that it can increase suicidal thoughts, especially in minors. If this happens go to the ER. Make the office aware or go to the ER, if you experience seizures or an increase in activity and irritability. Made aware to not abruptly stop medication. Medication can cause headache and nausea. . Denies suicidal or homicidal ideation or plan. No morbid thoughts. Interpersonal issues discussed. Support provided Insight oriented/ Behavior modifying/ Supportive therapy . 01/03/2025 Acquired hypothyroidism (ICD-10 - E03.9) 11/16/2024 Pruritic rash (ICD-1 0 - L28.2) Patient has history of rash returning anytime she is not treating it. Will put in referral for Dermatology and will send culture results with referral 11/16/2024 History of UTI (ICD- 10 - Z87.440) 12/13/2024 Nicotine dependence, unspecified, uncomplicated (ICD-10 - F17.200) 12/13/2024 Chronic fatigue (ICD-10 - R53.82) Today we discussed symptoms that patient has been experiencing. Based on the symptoms and presentation, we will start by ordering lab work and once I have results I will contact patient so we can discuss results and next steps 08/06/2024 Multiple-resistant Staphylococcus aureus infection (ICD-10 - B95.7) 01/09/2025 Episodic mood disord er (ICD-10 - F39) 01/29/2025 Dysuria (ICD-10 - R30.0) 01/29/2025 Bronchitis (ICD-10 - J40) Bronchitis is inflammation of airways, it is not caused from bacteria. Antibiotics will not treat this illness. Take medications as directed. Rest and increase fluid intake. Take meds with food to prevent stomach upset. Use inhaler as needed for SOB. Follow up with our office if symptoms do not improve with treatment plan, although it may take a few weeks for the cough to go away. Smoking increases risk of developing bronchitis. Smoking while sick will cause symptoms to worsen and it will take longer to get better 01/11/2025 Episodic mood disord er (ICD-10 - F39) 07/13/2024 ANUEL (generalized anxiety disorder) (ICD-10 - F41.1) 01/29/2025 Acute cystitis witho ut hematuria (ICD-10 - N30.00) Take medication as directed. Urine analysis shows abnormalities today in office. Urine culture will be sent to lab. Will call with results if resistance present to antibiotic. Increase fluid intake. Follow hygiene guidelines such as wiping front to back, avoid using perfumed lotions, bath beads, bubble bath. Prevention tips include urinating after sexual intercourse. Follow up with our office or piece dyeing machine tender if no improvement of symptoms. 11/22/2024 ANUEL (generalized anxiety disorder) (ICD-10 - F41.1) . Discussed seriousness of taking benzodiazepine medication daily and as needed, risks and benefits discussed including risk of addiction and accidental . Pt verbalized understanding. . High risk medications are drugs that have a heightened risk of causing significant patient harm when they are used in error. High risk medicines include medicines: with a low therapeutic index. that present a high risk when administered by the wrong route or when other system errors occur. Please notify provider for any concerns about your medications. . Buspar is a medication used for anxiety. The medication can cause dizziness, sedation, and restless. Please contact the office if you experience these symptoms. The medication typically takes 2-4 weeks to achieve efficacy. Made aware to contact office if symptoms worsen. 08/02/2024 Acquired hypothyroidism (ICD-10 - E03.9) Refills sent and will recheck labs at next visit. 08/06/2024 History of methicill in resistant Staph aureus (ICD-10 - Z86.14) 12/13/2024 Hair thinning (ICD-1 0 - L65.9) 01/16/2025 Nicotine dependence, unspecified, uncomplicated (ICD-10 - F17.200) 01/03/2025 ANUEL (generalized anxiety disorder) (ICD-10 - F41.1) Recommended treatment is: _ Buspar is a medication used for anxiety. The medication can cause dizziness, sedation, and restless. Please contact the office if you experience these symptoms. The medication typically takes 2-4 weeks to achieve efficacy. Made aware to contact office if symptoms worsen. . Discussed seriousness of taking benzodiazepine medication daily and as needed, risks and benefits discussed including risk of addiction and accidental . Pt verbalized understanding. . High risk medications are drugs that have a heightened risk of causing significant patient harm when they are used in error. High risk medicines include medicines: with a low therapeutic index. that present a high risk when administered by the wrong route or when other system errors occur. Please notify provider for any concerns about your medications. . propranolol: Encouraged to call office or report to the if the patient experiences dizziness or lightheadedness . Please monitor for worsening of symptoms, especially suicidal ideations or morbid thoughts, and call office and or go to the emergency department immediately. Pt does not endorse exhibiting symptoms aligning with imer. . The patient verbalizes understanding with all questions answered thoroughly and is in agreement with treatment plan. . Continue current treatment plan Patient/Guardian will call sooner if symptoms worsen. Patient understands to go to ER if needed if symptoms become severe. Crisis Intervention plan was discussed and agreed upon. Patient/Guardian will call 911 in case of emergency. Emergency contact information was provided to the patient/guardian. 01/31/2025 ANUEL (generalized anxiety disorder) (ICD-10 - F41.1) Recommended treatment is: _ Buspar is a medication used for anxiety. The medication can cause dizziness, sedation, and restless. Please contact the office if you experience these symptoms. The medication typically takes 2-4 weeks to achieve efficacy. Made aware to contact office if symptoms worsen. . Discussed seriousness of taking benzodiazepine medication daily and as needed, risks and benefits discussed including risk of addiction and accidental . Pt verbalized understanding. . High risk medications are drugs that have a heightened risk of causing significant patient harm when they are used in error. High risk medicines include medicines: with a low therapeutic index. that present a high risk when administered by the wrong route or when other system errors occur. Please notify provider for any concerns about your medications. . Please monitor for worsening of symptoms, especially suicidal ideations or morbid thoughts, and call office and or go to the emergency department immediately. Pt does not endorse exhibiting symptoms aligning with imer. . The patient verbalizes understanding with all questions answered thoroughly and is in agreement with treatment plan. . Continue current treatment plan Patient/Guardian will call sooner if symptoms worsen. Patient understands to go to ER if needed if symptoms become severe. Crisis Intervention plan was discussed and agreed upon. Patient/Guardian will call 911 in case of emergency. Emergency contact information was provided to the patient/guardian. 04/23/2025 ANUEL (generalized anxiety disorder) (ICD-10 - F41.1) Buspar is a medication used for anxiety. The medication can cause dizziness, sedation, and restless. Please contact the office if you experience these symptoms. The medication typically takes 2-4 weeks to achieve efficacy. Made aware to contact office if symptoms worsen. propranolol: Encouraged to call office or report to the if the patient experiences dizziness or lightheadedness . Discussed seriousness of taking benzodiazepine medication daily and as needed, risks and benefits discussed including risk of addiction and accidental . Pt verbalized understanding. . High risk medications are drugs that have a heightened risk of causing significant patient harm when they are used in error. High risk medicines include medicines: with a low therapeutic index. that present a high risk when administered by the wrong route or when other system errors occur. Please notify provider for any concerns about your medications. . 04/19/2025 Psychophysiological insomnia (ICD-10 - F51.04) 03/02/2025 ANUEL (generalized anxiety disorder) (ICD-10 - F41.1) Recommended treatment is: _ Buspar is a medication used for anxiety. The medication can cause dizziness, sedation, and restless. Please contact the office if you experience these symptoms. The medication typically takes 2-4 weeks to achieve efficacy. Made aware to contact office if symptoms worsen. . Please monitor for worsening of symptoms, especially suicidal ideations or morbid thoughts, and call office and or go to the emergency department immediately. Pt does not endorse exhibiting symptoms aligning with imer. propranolol: Encouraged to call office or report to the if the patient experiences dizziness or lightheadedness . Discussed seriousness of taking benzodiazepine medication daily and as needed, risks and benefits discussed including risk of addiction and accidental . Pt verbalized understanding. . High risk medications are drugs that have a heightened risk of causing significant patient harm when they are used in error. High risk medicines include medicines: with a low therapeutic index. that present a high risk when administered by the wrong route or when other system errors occur. Please notify provider for any concerns about your medications. . . The patient verbalizes understanding with all questions answered thoroughly and is in agreement with treatment plan. . Continue current treatment plan Patient/Guardian will call sooner if symptoms worsen. Patient understands to go to ER if needed if symptoms become severe. Crisis Intervention plan was discussed and agreed upon. Patient/Guardian will call 911 in case of emergency. Emergency contact information was provided to the patient/guardian. 06/12/2025 Psychophysiological insomnia (ICD-10 - F51.04) 06/25/2025 Episodic mood disord er (ICD-10 - F39) Patient educated on antipsychotic dosing schedule and side effects. Made aware to not abruptly stop the medication. Made aware to notify the office or go to the ER if experience any abnormal repetitive movements. Also, made aware to notify office of any nausea, vomiting, or dizziness. Made aware to not stop medication abruptly. This is an FDA approved use for this medication. Discussed with patient crisis plan. Provided crisis hotline number. [facility] has good support system. Made aware to contact office if has an increase in suicidal thoughts. If outside of office hours, patient to go to the ER. Patient will call the office with any questions or concerns. 06/25/2025 ANUEL (generalized anxiety disorder) (ICD-10 - F41.1) Buspar is a medication used for anxiety. The medication can cause dizziness, sedation, and restless. Please contact the office if you experience these symptoms. The medication typically takes 2-4 weeks to achieve efficacy. Made aware to contact office if symptoms worsen. propranolol Encouraged to call office or report to the if the patient experiences dizziness or lightheadedness . Discussed seriousness of taking benzodiazepine medication daily and as needed, risks and benefits discussed including risk of addiction and accidental . Pt verbalized understanding. . High risk medications are drugs that have a heightened risk of causing significant patient harm when they are used in error. High risk medicines include medicines: with a low therapeutic index. that present a high risk when administered by the wrong route or when other system errors occur. Please notify provider for any concerns about your medications. . 03/02/2025 Episodic mood disord er (ICD-10 - F39) Patient educated on antipsychotic dosing schedule and side effects. Made aware to not abruptly stop the medication. Made aware to notify the office or go to the ER if experience any abnormal repetitive movements. Also, made aware to notify office of any nausea, vomiting, or dizziness. Made aware to not stop medication abruptly. This is an FDA approved use for this medication. Discussed with patient crisis plan. Provided crisis hotline number. [facility] has good support system. Made aware to contact office if has an increase in suicidal thoughts. If outside of office hours, patient to go to the ER. Patient will call the office with any questions or concerns. 04/23/2025 Episodic mood disord er (ICD-10 - F39) Patient educated on antipsychotic dosing schedule and side effects. Made aware to not abruptly stop the medication. Made aware to notify the office or go to the ER if experience any abnormal repetitive movements. Also, made aware to notify office of any nausea, vomiting, or dizziness. Made aware to not stop medication abruptly. This is an FDA approved use for this medication. Discussed with patient crisis plan. Provided crisis hotline number. [facility] has good support system. Made aware to contact office if has an increase in suicidal thoughts. If outside of office hours, patient to go to the ER. Patient will call the office with any questions or concerns. 07/13/2024 Episodic mood disord er (ICD-10 - F39) 11/22/2024 Episodic mood disord er (ICD-10 - F39) Patient educated on new antipsychotic dosing schedule and side effects. Made aware to not abruptly stop the medication. Made aware to notify the office or go to the ER if experience any abnormal repetitive movements. Also, made aware to notify office of any nausea, vomiting, or dizziness. Made aware to not stop medication abruptly. This is an FDA approved use for this medication. Discussed with patient crisis plan. Provided crisis hotline number. [facility] has good support system. Made aware to contact office if has an increase in suicidal thoughts. If outside of office hours, patient to go to the ER. Patient will call the office with any questions or concerns Patient educated about the importance of adequate sleep to your mental health. The bedroom should be kept dark to promote restful sleep. The patient should not use their phone or watch TV while in bed, these behaviors can be stimulating and keep the patient awake. . Informed consent obtained: YES, we discussed the diagnosis/diagnose s, the treatment options, treatment(s) recommended vs. no treatment. We discussed risks and benefits of treatment options, treatment recommendations vs. no treatment. . . Pt is to continue current treatment plan Has good tolerability and compliance with medication Call for problems All questions and concerns discussed . 01/31/2025 Episodic mood disord er (ICD-10 - F39) Patient educated on antipsychotic dosing schedule and side effects. Made aware to not abruptly stop the medication. Made aware to notify the office or go to the ER if experience any abnormal repetitive movements. Also, made aware to notify office of any nausea, vomiting, or dizziness. Made aware to not stop medication abruptly. This is an FDA approved use for this medication. Discussed with patient crisis plan. Provided crisis hotline number. [facility] has good support system. Made aware to contact office if has an increase in suicidal thoughts. If outside of office hours, patient to go to the ER. Patient will call the office with any questions or concerns. Educated on antidepressant. Made aware of Black Box Warning that it can increase suicidal thoughts, especially in minors. If this happens go to the ER. Make the office aware or go to the ER, if you experience seizures or an increase in activity and irritability. Made aware to not abruptly stop medication. Medication can cause headache and nausea. . Denies suicidal or homicidal ideation or plan. No morbid thoughts. Interpersonal issues discussed. Support provided Insight oriented/ Behavior modifying/ Supportive therapy . . Informed consent obtained: YES, we discussed the diagnosis/diagnose s, the treatment options, treatment(s) recommended vs. no treatment. We discussed risks and benefits of treatment options, treatment recommendations vs. no treatment. . . Pt is to continue current treatment plan Has good tolerability and compliance with medication Call for problems All questions and concerns discussed . 01/03/2025 Episodic mood disord er (ICD-10 - F39) Patient educated on antipsychotic dosing schedule and side effects. Made aware to not abruptly stop the medication. Made aware to notify the office or go to the ER if experience any abnormal repetitive movements. Also, made aware to notify office of any nausea, vomiting, or dizziness. Made aware to not stop medication abruptly. This is an FDA approved use for this medication. Discussed with patient crisis plan. Provided crisis hotline number. [facility] has good support system. Made aware to contact office if has an increase in suicidal thoughts. If outside of office hours, patient to go to the ER. Patient will call the office with any questions or concerns. . Informed consent obtained: YES, we discussed the diagnosis/diagnose s, the treatment options, treatment(s) recommended vs. no treatment. We discussed risks and benefits of treatment options, treatment recommendations vs. no treatment. . . Pt is to continue current treatment plan Has good tolerability and compliance with medication Call for problems All questions and concerns discussed . 12/13/2024 Irregular menses (ICD-10 - N92.6) 11/16/2024 Nicotine dependence, unspecified, uncomplicated (ICD-10 - F17.200) 08/06/2024 Cutaneous fungal infection (ICD-10 - B36.9) 12/13/2024 Nausea (ICD-10 - R11.0) Nausea can be caused because of symptoms of other illnesses, gastro related viruses, headaches, etc. Use medication as directed. Encourage fluid intake and try to start with small sips of fluid. Watch for signs and symptoms of dehydration including decrease in urine output, dry mucus membranes, etc. Fluid intake is more important than food intake. Follow up with our office improvement of symptoms within the next few days. Seek emergency treatment if signs of dehydration occur such as decrease in urine, dry mouth, etc. Follow up in office in 1 week if symptoms are not improved. 04/23/2025 Psychophysiological insomnia (ICD-10 - F51.04) insomnia or trouble falling asleep or staying asleep, can be caused by many different things such as untreated sleep apnea (complete sleep study), anxiety, depression, stress (practice mindfulness, essential oils, melatonin, sleep hygiene, meditation, chammomile tea), poor sleep habits, other medical conditions or medications. The best way to treat insomnia is to treat the cause. In general, we can all benefit from better sleep hygiene. Some recommendations to help you improve your sleep hygiene so you can fall asleep, stay asleep and wake up feeling refreshed include: - keep a routine bedtime and rise time. -avoid caffeine in the late afternoon/early evening, including chocolate -keep your bedroom technology free. Avoid TV and electronics one hour prior to bedtime. Don't have a clock visible in your room. -set up a worry time in the late afternoon to cope with worries and plan for the following day. -avoid naps. If necessary, keep naps under 15-20mins -develop a relaxing routine before bed -keep the bedroom for sleeping nad intimacy only -make your bedroom dark, quiet and comfrotable temperature -do not exercise right before bed. Do get 20-30 minutes of exercise during the day. Pharmacotherapy options: (pt should deny snoring, pauses in breathing during sleep, risk for falls, sleep walking, forning fog or confusion on these meds). REFER FOR A SLEEP STUDY! -Melatonin up to 10mg qhs -Valerian root/chamomile tea -Seroquel -Zolpidem Tartrate (Ambien) 12.5mg oral tablet ER. take 1 tablet at bedtime PRN for sleep (check [place], complete controlled substance agreement (CSA) contract. Complete urine drug screen (UDS). Discuss safety guidelines of sleep aides). *use caution -Eszopiclone (Lunesta) check [place]AR[place], complete controlled substance agreement (CSA) contract. Complete urine drug screen (UDS). Discuss safety guidelines of sleep aides). *use caution -Hydroxyzine (50-100mg qhs) 30-60min before bed -Trazodone 25-50mg qhs Max 200mg/d (brand names Desyrel, Oleptro) (can use in conjunction with SSRI for mood stabilization), taper off dose if high dose used LT - Doxepin 6mg PO qhs (3mg in elderly pts) (anxiolytic, TCA) PTSD/nightmares: - Prazosin Safety guidelines with taking sleep aids: - rise slowly if you ahve been sitting or lyind down - avoid alcohol while taking thid drug - this drug may cause sleepiness or lwoer alertness. this may lead to falls - some people taking this drug have done thing like sleepwalking, sleep driving, making and eating food, or having sex...rarely, this has led to severe injuries or . Most of hte time people do not remember doing these things. IF this happens, stop taking this drug and tell your provider right away. HPI of insomnia: - naps? - sleep duration - sleep initiation, problems going to sleep? - sleep maintenance, problematic awakeings? - problems staying asleep - breathing during sleep: snoring? - sleep positioning: - hypersomnia sx? - legs at night (RLS?): - movements in sleep: - parasomnia: . Informed consent obtained: YES, we discussed the diagnosis/diagnose s, the treatment options, treatment(s) recommended vs. no treatment. We discussed risks and benefits of treatment options, treatment recommendations vs. no treatment. . . Pt is to continue current treatment plan Has good tolerability and compliance with medication Call for problems All questions and concerns discussed . 06/25/2025 Psychophysiological insomnia (ICD-10 - F51.04) Educated on antidepressant. Made aware of Black Box Warning that it can increase suicidal thoughts, especially in minors. If this happens go to the ER. Make the office aware or go to the ER, if you experience seizures or an increase in activity and irritability. Made aware to not abruptly stop medication. Medication can cause headache and nausea. . Denies suicidal or homicidal ideation or plan. No morbid thoughts. Interpersonal issues discussed. Support provided Insight oriented/ Behavior modifying/ Supportive therapy . . Discussed seriousness of taking hypnotic medication daily and as needed, risks and benefits discussed including risk of addiction and accidental . Pt verbalized understanding. . High risk medications are drugs that have a heightened risk of causing significant patient harm when they are used in error. High risk medicines include medicines: with a low therapeutic index. that present a high risk when administered by the wrong route or when other system errors occur. Please notify provider for any concerns about your medications. . . Informed consent obtained: YES, we discussed the diagnosis/diagnose s, the treatment options, treatment(s) recommended vs. no treatment. We discussed risks and benefits of treatment options, treatment recommendations vs. no treatment. . . Pt is to continue current treatment plan Has good tolerability and compliance with medication Call for problems All questions and concerns discussed . 03/02/2025 Psychophysiological insomnia (ICD-10 - F51.04) insomnia or trouble falling asleep or staying asleep, can be caused by many different things such as untreated sleep apnea (complete sleep study), anxiety, depression, stress (practice mindfulness, essential oils, melatonin, sleep hygiene, meditation, chammomile tea), poor sleep habits, other medical conditions or medications. The best way to treat insomnia is to treat the cause. In general, we can all benefit from better sleep hygiene. Some recommendations to help you improve your sleep hygiene so you can fall asleep, stay asleep and wake up feeling refreshed include: - keep a routine bedtime and rise time. -avoid caffeine in the late afternoon/early evening, including chocolate -keep your bedroom technology free. Avoid TV and electronics one hour prior to bedtime. Don't have a clock visible in your room. -set up a worry time in the late afternoon to cope with worries and plan for the following day. -avoid naps. If necessary, keep naps under 15-20mins -develop a relaxing routine before bed -keep the bedroom for sleeping nad intimacy only -make your bedroom dark, quiet and comfrotable temperature -do not exercise right before bed. Do get 20-30 minutes of exercise during the day. Pharmacotherapy options: (pt should deny snoring, pauses in breathing during sleep, risk for falls, sleep walking, forning fog or confusion on these meds). REFER FOR A SLEEP STUDY! -Melatonin up to 10mg qhs -Valerian root/chamomile tea -Seroquel -Zolpidem Tartrate (Ambien) 12.5mg oral tablet ER. take 1 tablet at bedtime PRN for sleep (check OAR[place], complete controlled substance agreement (CSA) contract. Complete urine drug screen (UDS). Discuss safety guidelines of sleep aides). *use caution -Eszopiclone (Lunesta) check [place]AR[place], complete controlled substance agreement (CSA) contract. Complete urine drug screen (UDS). Discuss safety guidelines of sleep aides). *use caution -Hydroxyzine (50-100mg qhs) 30-60min before bed -Trazodone 25-50mg qhs Max 200mg/d (brand names Desyrel, Oleptro) (can use in conjunction with SSRI for mood stabilization), taper off dose if high dose used LT - Doxepin 6mg PO qhs (3mg in elderly pts) (anxiolytic, TCA) PTSD/nightmares: - Prazosin Safety guidelines with taking sleep aids: - rise slowly if you ahve been sitting or lyind down - avoid alcohol while taking thid drug - this drug may cause sleepiness or lwoer alertness. this may lead to falls - some people taking this drug have done thing like sleepwalking, sleep driving, making and eating food, or having sex...rarely, this has led to severe injuries or . Most of hte time people do not remember doing these things. IF this happens, stop taking this drug and tell your provider right away. HPI of insomnia: - naps? - sleep duration - sleep initiation, problems going to sleep? - sleep maintenance, problematic awakeings? - problems staying asleep - breathing during sleep: snoring? - sleep positioning: - hypersomnia sx? - legs at night (RLS?): - movements in sleep: - parasomnia: . Informed consent obtained: YES, we discussed the diagnosis/diagnose s, the treatment options, treatment(s) recommended vs. no treatment. We discussed risks and benefits of treatment options, treatment recommendations vs. no treatment. . . Pt is to continue current treatment plan Has good tolerability and compliance with medication Call for problems All questions and concerns discussed . 12/13/2024 Viral gastroenteriti s (ICD-10 - A08.4) Symptoms appear viral in nature. Take medication for nausea as needed. Important to watch for signs and symptoms of dehydration including decrease in urine output, dry mucus membranes. If any of these symptoms occur or pain develops, seek emergency treatment. Education handout on gastro diet given 07/13/2024 Other follow up in 3 months . Discussed seriousness of taking benzodiazepine medication daily and as needed, risks and benefits discussed including risk of addiction and accidental . Pt verbalized understanding. . High risk medications are drugs that have a heightened risk of causing significant patient harm when they are used in error. High risk medicines include medicines: with a low therapeutic index. that present a high risk when administered by the wrong route or when other system errors occur. Please notify provider for any concerns about your medications. . Educated on new antidepressant. Made aware of Black Box Warning that it can increase suicidal thoughts, especially in minors. If this happens go to the ER. Make the office aware or go to the ER, if you experience seizures or an increase in activity and irritability. Made aware to not abruptly stop medication. Medication can cause headache and nausea. . Denies suicidal or homicidal ideation or plan. No morbid thoughts. Interpersonal issues discussed. Support provided Insight oriented/ Behavior modifying/ Supportive therapy . Patient educated on new antipsychotic dosing schedule and side effects. Made aware to not abruptly stop the medication. Made aware to notify the office or go to the ER if experience any abnormal repetitive movements. Also, made aware to notify office of any nausea, vomiting, or dizziness. Made aware to not stop medication abruptly. This is an FDA approved use for this medication. Discussed with patient crisis plan. Provided crisis hotline number. [facility] has good support system. Made aware to contact office if has an increase in suicidal thoughts. If outside of office hours, patient to go to the ER. Patient will call the office with any questions or concerns. Buspar is a medication used for anxiety. The medication can cause dizziness, sedation, and restless. Please contact the office if you experience these symptoms. The medication typically takes 2-4 weeks to achieve efficacy. Made aware to contact office if symptoms worsen. Patient educated about the importance of adequate sleep to your mental health. The bedroom should be kept dark to promote restful sleep. The patient should not use their phone or watch TV while in bed, these behaviors can be stimulating and keep the patient awake. . Informed consent obtained: YES, we discussed the diagnosis/diagnose s, the treatment options, treatment(s) recommended vs. no treatment. We discussed risks and benefits of treatment options, treatment recommendations vs. no treatment. . 11/16/2024 Other Take medication as directed. Urine analysis shows abnormalities today in office. Urine culture will be sent to lab. Will call with results if resistance present to antibiotic. Increase fluid intake. Follow hygiene guidelines such as wiping front to back, avoid using perfumed lotions, bath beads, bubble bath. Prevention tips include urinating after sexual intercourse. Follow up with our office or piece dyeing machine tender if no improvement of symptoms., Body Mass Index: Care Instructions material was published, Body Mass Index: Care Instructions material was printed 12/13/2024 Other Body Mass Index : Care Instructions material was published, Body Mass Index: Care Instructions material was printed 01/16/2025 Other Body Mass Index : Care Instructions material was published, Body Mass Index: Care Instructions material was printed 01/29/2025 Other Body Mass Index : Care Instructions material was published, Body Mass Index: Care Instructions material was printed 03/06/2025 Other Body Mass Index : Care Instructions material was published, Body Mass Index: Care Instructions material was printed 05/29/2025 Other Body Mass Index : Care Instructions material was published, Body Mass Index: Care Instructions material was printed Plan Of Treatment Next Appt Details Provider Name:rBeana Costa matilde, 10/01/2025 04:15:00 PM, [address] [place] [address], [phone], Insurance Providers Payer Name Payer Address Payer Phone Subscriber Number Group Number Insured Name Patient Relationship to Insured Coverage Start Date Coverage End Date [employer] by [facility] [address] [place] [phone] [id number] IVAN RECIO Self - patient is the insured 5 [employer] [address] [place] [address] [id number] IVAN RECIO Self - patient is the insured 1 5 [facility] [address] [place] [address] [id number] IVAN RECIO Self - patient is the insured 3 Dental [employer] DQ [place] Medicaid [address] [place] [address] [id number] IVAN RECIO Self - patient is the insured 3 Dental Wrap [facility] [address] [place] [phone] [id number] IVAN RECOI Self - patient is the insured 3 Secondary [facility] [address] [place] [address] [id number] IVAN RECIO Self - patient is the insured 3 Wrap [facility] [address] [place] [phone] [id number] IVAN RECIO Self - patient is the insured 3 BH Wrap [facility] [address] [place] [phone] [id number] IVAN RECIO Self - patient is the insured 3 Medical (General) History Medical History History ICD Code GERD DEPRESSION Moderate episode of recurrent major depr essive disorder F33.1 Surgical History Surgery Date(Month/Year) KNEE SURGERY 2009 TUBAL LIGATION 1999 Hospitalization History Reason Date(Month/Year) [facility] for overdosing due to depression 20 13
[2025-06-29 07:26] LABS: Hematocrit 36.8 % (36.0-48.0); Hemoglobin 12.2 g/dL (12.0-16.0); Immature Granulocytes Abs Auto 0.02 10^3/uL (0.00-0.03); Immature Granulocytes Pct Auto 0.3 % (0.0-0.5); Lymphocytes Absolute Auto 1.8 10^3/uL (1.2-3.8); Mean Corpuscular HGB Conc 33.2 g/dL (29.9-35.2); Mean Corpuscular Hemoglobin 30.0 pg (26.7-34.0); Mean Corpuscular Volume 90.6 fL (81.0-99.0); Platelet Count 299 10^3/uL (150-450); Red Blood Count 4.06 10^6/uL (4.20-5.40); White Blood Count 7.2 10^3/uL (4.0-11.0)
[2025-06-29 07:36] VITALS: BP 103/78; PULSE 95; TEMP 36.2; O2SAT 99
[2025-06-29 07:44] LABS: Cannabinoid Screen Urine NEGATIVE (NEGATIVE); Methamphetamines Screen Urine POSITIVE (NEGATIVE); Tricyclic Antidepressant Urine NEGATIVE (NEGATIVE)
--- NOTE | 2025-06-29 10:12 | PM.ONB ---
Brief Operative Note Date of procedure: 06/29/25 Pre-op diagnosis general: pmb Post-op diagnosis: same as pre-op Procedure: NAME OF PROCEDURE: [ D&c hysteroscopy with myosure] PROCEDURE: The patient was taken back to the Operating Room where she was prepped and draped in normal sterile fashion after being placed under general anesthesia without difficulty. She was also placed in the dorsal lithotomy position. A weighted speculum was placed in the patient?s vagina. The anterior lip of the cervix was identified and grasped with a single tooth tenaculum. The patient?s uterus was then sounded roughly to [? 8] cm. The patient was then gently dilated using Hegar dilators. The hysteroscope was passed through the patient?s cervix into the uterus. Both ostia were identified. fluffy appearing endometrium. No gross evidence of malignancy, no gross evidence of polyps or fibroids. The myosure apparatus was placed through the scope, The myosure was engaged and endometrial curretting were removed along with endometrial polyp, The hysteroscope was then removed from the uterus. The endometrial curettings were sent out to pathology. The single tooth tenaculum was then removed from the patient's anterior lip of the cervix where excellent hemostasis was noted. All instruments were removed from the patient?s vagina. The patient tolerated the procedure well. Sponge, lap and needle counts were correct times two. The patient was taken to the Recovery Room in stable condition.Room in stable condition. Anesthesia: GETA and MAC Surgeon: Daniel Mccall Estimated blood loss (mL): 5 Pathology: other (endometrial currettings) Condition: stable Disposition: PACU Urinary Catheter Management Urinary Catheter Management Urethral: Cath placed during this visit: no
[2025-06-29 10:18] VITALS: BP 100/72; PULSE 84; TEMP 36.1; O2SAT 99
[2025-06-29 10:33] VITALS: BP 99/66; PULSE 73; O2SAT 99
[2025-06-29 11:04] VITALS: BP 94/66; PULSE 66; O2SAT 99
--- NOTE | 2025-06-29 11:05 | PC.NURSE ---
Scant light red drainage noted on peripad
[2025-06-29 11:33] VITALS: BP 94/58; PULSE 72; O2SAT 98
--- NOTE | 2025-06-29 11:33 | PC.NURSE ---
Small amount light red drainage on peripad
--- NOTE | 2025-06-29 11:40 | PC.NURSE ---
Up to bathroom and voids clear yellow without difficulty
== END 2025-06-29 11:41 | disposition home or self-care (01) ==
PROVIDERS: Visit Provider Obstetrics & Gynecology
PROC: (CPT 952; principal; 2025-06-29 08:45)
DX: N93.9 Abnormal uterine and vaginal bleeding, unspecified (principal); N92.0 Excessive and frequent menstruation with regular cycle; Z98.51 Tubal ligation status; F17.210 Nicotine dependence, cigarettes, uncomplicated; E03.9 Hypothyroidism, unspecified; F32.A Depression, unspecified
CPT/HCPCS: 58558; 36415; 80307; 84702; 85025; 88305; J1100; J1885; J2250; J2704; J3010

== ENCOUNTER 2025-07-27 11:41 | Outpatient (OUT) | payer OTHER, SELFPAY ==
--- OUTSIDE RECORDS SUMMARY | 2025-04-05 10:00 | XMS_ITS ---
Author Organization [facility] es Address [address] [place] [address] Care Team Providers Care Operations Architect Name Role Phone Lakshmi Morales Primary Care Provider Breana Milian Unavailable [phone] Jesus Paniagua [phone] REASON FOR VISIT ADJUSTMENT- Dr. Lechuga Encounters Encounter Location Date Provider Diagnosis [facility] [address] [place] [address] 04/05/2025 Jesus Paniagua Plan Of Treatment Next Appt Details Provider Name:Breana Guillermosury clayton, 10/01/2025 04:15:00 PM, [address] [place], [address], Progress Notes * IVAN RECIODOB: 1 (55 yo F)Acc No.[id number]:04/05/2025 Dental Appointment Patient: IVAN KEYS Provider: Shanon Paniagua DDS :1970 A ge:54 Y S ex:Female Date:04/05/2025 Address:[address] [place] [phone] Pcp:Lakshmi Morales Subjective: * Chief Complaints: * 1 . ADJUSTMENT- Dr. Floyd * Medical History: Objective: * Vitals: Assessment: Plan: * Treatment: * Images: * Electronic signature of Prabhu Paniagua DDS on 07/27/2025 at 11:45 AM EDT Sign off status: Pending * Provider: Shanon Paniagua DDS Date: 0 04/05/2025 Generated for Kayla fu/Delicia/Chacorta on: 0 07/27/2025 11:45 AM EDT
--- OUTSIDE RECORDS SUMMARY | 2025-06-05 12:30 | XMS_ITS ---
[facility] Address [address] [place] [address] Care Team Providers Care Bridge Maintenance Worker Name Role Phone Lakshmi Morales Primary Care Provider Mimayuli Breana Unavailable [phone] REASON FOR VISIT YOAV Yoana, UTI Encounters Encounter Location Date Provider Diagnosis [facility] [address] [place] [address] 06/05/2025 Lakshmi Morales Plan Of Treatment Next Appt Details Provider Name:Breana Costa matilde, 10/01/2025 04:15:00 PM, [address] [place], [address], Progress Notes * IVAN RECIODOB: 1 (55 yo F)Acc No.[id number]:06/05/2025 Progress Notes Patient: IAVN KEYS Provider: Brittney Morales :1970 A ge:55 Y S ex:Female Date:06/05/2025 Address:[address] [place] [phone] Subjective: * Chief Complaints: * 1 . YOAV Yoana, UTI. * Medical History: Objective: * Vitals: Assessment: Plan: * Treatment: * Images: * Electronic signature of Vidhya Morales , ABAD-BC, PHOTOCOPYING EQUIPMENT MECHANIC.FISH ROD [id number] on 07/27/2025 at 11:45 AM EDT Sign off status: Pending * Provider: Brittney Morales Date: 0 06/05/2025 Generated for Kayla fu/Delicia/Quetaitting on: 0 07/27/2025 11:45 AM EDT
--- OUTSIDE RECORDS SUMMARY | 2025-07-18 16:00 | XMS_ITS | Encounter Summary ---
Author Organization [facility] Address [address] [place] [address] Care Team Providers Care Manual Arts Therapy Teacher Name Role Phone Hortensia Lees NP Unavailable [phone] Reason for Visit * Reason Comments Pre-op Visit Post-op Visit Encounter Details Date Type Department Care Team (Late st Contact Info) Description 07/18/2025 4:00 PM EDT Consult [facility] [place] [facility] [address] [place] [id number] Daniel Mccall DO [address] [place], [facility] Pre-op examination; Menorrhagia with regular cycle; Abnormal uterine bleeding (AUB); Pelvic pain; Urinary tract infection without hematuria, site unspecified Social History Tobacco Use Types Packs/Day Years [...] on file documented as of this encounter Last Filed Vital Signs Vital Sign Reading Time Taken Comments Blood Pressure 120/84 07/18/2025 4:29 PM EDT Pulse - - Temperature - - Respiratory Rate - - Oxygen Saturation - - Inhaled Oxygen Concentration - - Weight 61.7 kg (136 lb) 07/18/2025 4:29 PM EDT Height - - Body Mass Index 24.87 03/14/2024 10:57 AM EDT documented in this encounter Progress Notes * Crystal Gregory - 07/18/2025 4:00 PM EDT Reason for Appointment: Patient ID: Gilda Sullivan is a 55 y.o. female who presents for Pre-op Visit and Post-op Visit Patient presents today for Pre Op/Post Op appointment. Patient is scheduled to undergo Endometrial Ablation with Sigrid on 08-03-[address] Mccall at [facility]. MEDICATIONS Current Outpatient Medications Medication Instructions albuterol HFA 90 mcg/act inhaler 2 puffs, Every 6 hours PRN ALPRAZolam (XANAX) 0.25 mg, Oral, 2 times daily PRN amitriptyline (ELAVIL) 25 mg, Oral, Daily, 1/2-1 po at bedtime ARIPiprazole (ABILIFY) 5 mg, Daily busPIRone (BUSPAR) 15 mg, 3 times daily Fetzima 120 mg, Daily levothyroxine (SYNTHROID, LEVOXYL) 100 mcg, Daily rizatriptan (MAXALT) 10 mg, Oral, Once as needed, 1 po at onset of migraine, may repeat x1 in 2 hours prn. Max 2/day, 2 days/wk ALLERGIES Allergies Allergen Reactions Sulfamethoxazole-Trimethoprim Other Reaction(s): MOUTH BURNIGAND PEELING, Mouth ulcers PROBLEMS Active Ambulatory Problems Diagnosis Date Noted No Active Ambulatory Problems Resolved Ambulatory Problems Diagnosis Date Noted No Resolved Ambulatory Problems Past Medical History: Diagnosis Date Cluster headache Depression Migraine Pneumonia Thyroid disorder HISTORY PAST MEDICAL HISTORY SOCIAL HISTORY Past Medical History: Diagnosis Date Cluster headache Depression Migraine Pneumonia Thyroid disorder Social History Tobacco Use Smoking status: Every Day Types: Cigarettes Smokeless tobacco: Never Substance Use Topics Alcohol use: Yes Drug use: Not on file FAMILY HISTORY Family History Problem Relation Name Age of Onset Cancer Mother Cancer Father SURGICAL HISTORY Past Surgical History: Procedure Laterality Date KNEE SURGERY TUBAL LIGATION REVIEW OF SYSTEMS Review of Systems: Review of Systems Constitutional: Negative. HENT: Negative. Eyes: Negative. Respiratory: Negative. Cardiovascular: Negative. Gastrointestinal: Negative. Genitourinary: Positive for menstrual problem and pelvic pain. Musculoskeletal: Negative. Skin: Negative. Neurological: Negative. All other systems reviewed and are negative. Hematological: Negative. Endocrine: Negative. Allergic/Immunologic: Negative. OBJECTIVE Objective: Physical Exam Constitutional: Appearance: Normal appearance. She is well-developed. Cardiovascular: Rate and Rhythm: Normal rate and regular rhythm. Pulmonary: Effort: Pulmonary effort is normal. Breath sounds: Normal breath sounds. Abdominal: General: Bowel sounds are normal. There is no distension. Palpations: Abdomen is soft. Tenderness: There is no abdominal tenderness. There is no guarding or rebound. Musculoskeletal: General: No swelling. Normal range of motion. Right lower leg: No edema. Left lower leg: No edema. Neurological: Mental Status: She is alert and oriented to person, place, and time. Skin: General: Skin is warm and dry. Psychiatric: Mood and Affect: Mood normal. Behavior: Behavior normal. Vitals and nursing note reviewed. Exam conducted with a high density finishing operator present. Vitals: Estimated body mass index is 25.68 kg/m?? as calculated from the following: Height as of 03/14/24: 5' 2 . Weight as of 06/04/25: 140 lb 6.4 oz. BP: No LMP recorded. ASSESSMENT & PLAN ICD-10-CM 1. Pre-op examination Z01.818 2. Menorrhagia with regular cycle N92.0 3. Abnormal uterine bleeding (AUB) N93.9 4. Pelvic pain R10.2 Pre Op: Patient is doing well but has complaints of menorrhagia abnormal uterine bleeding and pelvic pain. I have discussed conservative management vs. surgical management with the patient in detail and patient desires surgical management at this time. Patient will undergo Endometrial Ablation with Minervaon 08-03-25. Surgical consents were signed, mmc was reviewed, and patient is to proceed to [facility] OR. Patient complaints of UTI symptoms, urine sent out for culture and Macrobid & Pyridium sent to pharmacy. Follow Up: Patient is to follow up between 1-2 weeks post operative to assess proper healing and recovery fromprocedure. Documented by Mila Shields LPN on behalf of: Daniel Mccall DO documented in this encounter Plan of Treatment Scheduled Orders Name Type Priority Associated Diagnoses Orde r Schedule Urine culture Microbiology Routine Urinary tract infection without hematuria, site unspecified Ordered: 07/18/2025 documented as of this encounter Procedures Procedure Name Priority Date/Time Associated Diagnosis Comments POCT URINALYSIS DIPSTICK Routine 07/18/2025 4:42 PM EDT Urinary tract infection without hematuria, site unspecified documented in this encounter Results * (ABNORMAL) POCT urinalysis dipstick manually resulted (07/18/2025 4:42 PM EDT) Color, UA Yellow Clarity, UA Cloudy Glucose, UA Negative Negative - 2000(110) ++++ mg/dL Bilirubin, UA Negative Negative - 4(70) +++ mg/dL Ketones, UA Negative Negative - 160(16) ++++ mg/dL Spec Grav, UA 1.015 1 - 1.03 Blood, UA Negative Negative - 50 Greyson/mcL pH, UA 6.5 5 - 9 Protein, UA 1+ Negative - 2000(20) ++++ mg/dL Urobilinogen, UA 0.2 0.2 - 12 mg/dL Leukocytes, UA 3+ Negative - 500+++ Courtney/mcL Nitrite, UA Positive Negative - Positive Urine 07/18/2025 4:42 PM EDT Daniel Mccall DO POINT OF CARE TEST ENTER/EDIT OR DERABLES Final Result documented in this encounter Visit Diagnoses Diagnosis Pre-op examination Menorrhagia with regular cycle Abnormal uterine bleeding (AUB) Pelvic pain Urinary tract infection without hematuria, site unspecified documented in this encounter Care Teams Manual Arts Therapy Teacher Relationship Specialty Start Date End Date Hortensia Lese NP [address] [place] [address] Referring Physician 03/14/24 documented as of this encounter
--- OUTSIDE RECORDS SUMMARY | 2025-07-27 11:45 | XMS_ITS | Clinical Summary ---
Author Organization [facility] Address [address] [place] [address] Care Team Providers Care Manufacturing Engineering Professor Name Role Phone YoanaDeshaunHortensia STATION DETECTIVE Unavailable [phone] Allergies Active Allergy Reactions Criticality Noted Date [...] Max 2/day, 2 days/wk 9 tablet 2 4 Active phenazopyridine (Pyridium) 100 MG tabletIndication s:Urinary tract infection without hematuria, site unspecified Take 1 tablet (100 mg) by mouth 3 (three) times a day as needed for bladder spasms for up to 9 doses 10 tablet 5 Active amoxicillin-clav ulanate (Augmentin) 875-125 MG tabletIndication s:Urinary tract infection with hematuria, site unspecified Take 1 tablet (875 mg) by mouth in the morning and 1 tablet (875 mg) before bedtime. Do all this for 7 days. 14 tablet 5 07/27/20 25 Active nitrofurantoin, macrocrystal-mon ohydrate, (Macrobid) 100 MG capsuleIndicatio ns:Urinary tract infection without hematuria, site unspecified Take 1 capsule (100 mg) by mouth in the morning and 1 capsule (100 mg) before bedtime. Do all this for 7 days. 14 capsule 5 07/25/20 25 Encounters Date Type Department Care Team Description 07/23/2025 [place] [address] Tonia Kumar LPN URINARY TRACT INFECTION (HTRX) 07/20/20[place] [address] Roxy Trent MA 07/20/2025 [place] [address] Roxy Trent MA 07/18/2025 4:00 [place] [address] Danile Mccall, DO Pre-op examination; Menorrhagia with regular cycle; Abnormal uterine bleeding (AUB); Pelvic pain; Urinary tract infection without hematuria, site unspecified 07/18/2025 External Result Encounter [facility] External Department Unsolicited Daniel Mccall, DO 06/29/2025 Abstract [facility] [address] [place] [address] Daniel Mccall, DO 06/29/2025 Abstract [facility] [address] [place] [address] Daniel Mccall, DO 06/29/2025 Clinisync Result Encounter NOMS External Department Unsolicited Daniel Mccall, DO 06/04/2025 4:00 PM EDT Consult [facility] [address] [place] [address] Daniel Mccall, DO Pre-op examination; Menorrhagia with regular cycle; Abnormal uterine bleeding (AUB) from Last 3 Months Family History Medical [...] (136 lb) 07/18/2025 4:29 PM EDT Height 157.5 cm (5' 2 ) 03/14/2024 10:57 AM EDT Body Mass Index 24.87 03/14/2024 10:57 AM EDT Plan of Treatment Not on file Procedures Procedure Name Priority Date/Time Associated Diagnosis Comments URINARY TRACT INFECTION (HTRX) Routine 07/18/2025 5:51 PM EDT POCT URINALYSIS DIPSTICK Routine 07/18/2025 4:42 PM EDT Urinary tract infection without hematuria, site unspecified [facility] PREG QUANT HCG Routine 06/29/2025 7: 19 AM EDT ALL CBC WITH AUTO DIFF Routine 06/29/2025 7:19 AM EDT [facility] DRUG SCREEN RAPID (URINE) Routine 06/29/2025 7:15 AM EDT from Last 3 Months Results * (ABNORMAL) URINARY TRACT INFECTION (HTRX) (07/18/2025 5:51 PM EDT) [facility] ACINETOBACTER BAUMANII 0 19.961 - 24.689 ppm 07/20/2025 7:57 AM EDT [facility] ACINETOBACTER BAUMANII Not Detected 19.961 - 24.689 ppm 07/20/2025 7:57 AM EDT [facility] CITROBACTER FREUNDII 0 23.000 - 32.015 ppm 07/20/2025 7:57 AM EDT [facility] CITROBACTER FREUNDII Not Detected 23.000 - 32.015 ppm 07/20/2025 7:57 AM EDT [facility] ENTEROBACTER AEROGENES, CLOACAE 0 23.000 - 32.290 ppm 07/20/2025 7:57 AM EDT [facility] ENTEROBACTER AEROGENES, CLOACAE Not Detected 23.000 - 32.290 ppm 07/20/2025 7:57 AM EDT [facility] ENTEROCOCCUS FAECALIS, FAECIUM 0 26.000 - 33.043 ppm 07/20/2025 7:57 AM EDT [facility] ENTEROCOCCUS FAECALIS, FAECIUM Not Detected 26.000 - 33.043 ppm 07/20/2025 7:57 AM EDT [facility] ESCHERICHIA COLI 16.324(A) 23.000 - 28.500 ppm 07/20/2025 7:57 AM EDT [facility] ESCHERICHIA COLI Detected(A) 23.000 - 28.500 ppm 07/20/2025 7:57 AM EDT [facility] KLEBSIELLA PNEUMONIAE, OXYTOCA 0 23.000 - 31.865 ppm 07/20/2025 7:57 AM EDT [facility] KLEBSIELLA PNEUMONIAE, OXYTOCA Not Detected 23.000 - 31.865 ppm 07/20/2025 7:57 AM EDT [facility] MORGANELLA MORGANII 0 19.961 - 24.689 ppm 07/20/2025 7:57 AM EDT [facility] MORGANELLA MORGANII Not Detected 19.961 - 24.689 ppm 07/20/2025 7:57 AM EDT [facility] PROTEUS MIRABILIS, VULGARIS 0 23.000 - 28.500 ppm 07/20/2025 7:57 AM EDT [facility] PROTEUS MIRABILIS, VULGARIS Not Detected 23.000 - 28.500 ppm 07/20/2025 7:57 AM EDT [facility] PSEUDOMONAS AERUGINOSA 0 23.000 - 31.801 ppm 07/20/2025 7:57 AM EDT [facility] PSEUDOMONAS AERUGINOSA Not Detected 23.000 - 31.801 ppm 07/20/2025 7:57 AM EDT [facility] STAPHYLOCOCCUS AUREUS 0 26.000 - 31.595 ppm 07/20/2025 7:57 AM EDT [facility] STAPHYLOCOCCUS AUREUS Not Detected 26.000 - 31.595 ppm 07/20/2025 7:57 AM EDT [facility] STREPTOCOCCUS AGALACTIAE (GROUP B STREP) 27.554(A) 26.000 - 32.435 ppm 07/20/2025 7:57 AM EDT [facility] STREPTOCOCCUS AGALACTIAE (GROUP B STREP) Detected(A) 26.000 - 32.435 ppm 07/20/2025 7:57 AM EDT [facility] ENDER ALBICANS, PARAPSILOSIS, TROPICALIS 0 23.000 - 30.347 ppm 07/20/2025 7:57 AM EDT [facility] ENDER ALBICANS, PARAPSILOSIS, TROPICALIS Not Detected 23.000 - 30.347 ppm 07/20/2025 7:57 AM EDT [facility] ENDER GLABRATA 0 23.000 - 31.618 ppm 07/20/2025 7:57 AM EDT [facility] ENDER GLABRATA Not Detected 23.000 - 31.618 ppm 07/20/2025 7:57 AM EDT [facility] ENDER KRUSEI 0 23.000 - 30.873 ppm 07/20/2025 7:57 AM EDT [facility] ENDER KRUSEI Not Detected 23.000 - 30.873 ppm 07/20/2025 7:57 AM EDT [facility] SERRATIA MARCESCENS 0 23.000 - 31.581 ppm 07/20/2025 7:57 AM EDT [facility] SERRATIA MARCESCENS Not Detected 23.000 - 31.581 ppm 07/20/2025 7:57 AM EDT [facility] STREPTOCOCCUS PYOGENES (GROUP A STREP) 0 19.961 - 24.689 ppm 07/20/2025 7:57 AM EDT [facility] STREPTOCOCCUS PYOGENES (GROUP A STREP) Not Detected 19.961 - 24.689 ppm 07/20/2025 7:57 AM EDT [facility] STAPHYLOCOCCUS EPIDERMIDIS, HAEMOLYTICUS, LUGDUNENSIS, SAPROPHYTICUS (URINA 0 19.961 - 24.689 ppm 07/20/2025 7:57 AM EDT [facility] STAPHYLOCOCCUS EPIDERMIDIS, HAEMOLYTICUS, LUGDUNENSIS, SAPROPHYTICUS (URINA Not Detected 19.961 - 24.689 ppm 07/20/2025 7:57 AM EDT [facility] STAPHYLOCOCCUS EPIDERMIDIS, HAEMOLYTICUS, LUGDUNENSIS, SAPROPHYTICUS (URINA 0 19.961 - 24.689 ppm 07/20/2025 7:57 AM EDT [facility] STAPHYLOCOCCUS EPIDERMIDIS, HAEMOLYTICUS, LUGDUNENSIS, SAPROPHYTICUS (URINA Not Detected 19.961 - 24.689 ppm 07/20/2025 7:57 AM EDT [facility] TET B, TET M 26.354(A) 23.000 - 27.500 ppm 07/20/2025 7:57 AM EDT [facility] TET B, TET M Detected(A) 23.000 - 27.500 ppm 07/20/2025 7:57 AM EDT [facility] Urine 07/18/2025 5:51 PM EDT 07/20/2025 1:52 AM EDT Daniel Cal DO LAB BLOOD ORDERABLES Final Resul t [facility] [address] [id number] * (ABNORMAL) POCT urinalysis dipstick manually resulted [...] Positive Urine 07/18/2025 4:42 PM EDT Daniel Cal DO POINT OF CARE TEST ENTER/EDIT OR DERABLES Final Result * [facility] PREG QUANT HCG (06/29/2025 7:19 AM EDT) [facility] HCG QUANTITATIVE <1 mIU/mL [facility] Comment: 5-50 0.2-1 WEEK 50-500 1-2 WEEKS 100-5,000 2-3 WEEKS 500-10,000 3-4 WEEKS 1,000-50,000 4-5 WEEKS 10,000-100,000 5-6 WEEKS 15,000-200,000 6-8 WEEKS 10,000-100,000 2-3 MONTHS 06/29/2025 7:19 AM EDT 06/29/2025 7:20 AM EDT Narrative [facility] - 06/29/2025 8:14 AM EDT Daniel Mccall DO CLINISYNC Final Result [facility] * (ABNORMAL) ALL CBC WITH AUTO DIFF (06/29/2025 7:19 AM EDT) [facility] TB WBC 7.2 4.0 - 11.0 10 3/uL TBH TB RBC 4.06(L) 4.20 - 5.40 10 6/uL [facility] TB HGB 12.2 12.0 - 16.0 g/dL TB TB HCT 36.8 36.0 - 48.0 % TBH TB MCV 90.6 81.0 - 99.0 fL TB TB MCH 30.0 26.7 - 34.0 pg TBH TB MCHC 33.2 29.9 - 35.2 g/dL TB TB RDW 16.3(H) 11.0 - 15.0 % TBH TB PLT 299 150 - 450 10 3/uL TBH TB MPV 9.3(L) 9.5 - 13.5 fL [facility]H NEUTROPHILS PERCENT AUTO 58.8 43.0 - 75.0 % TBH LYMPHOCYTES PERCENT AUTO 24.6 20.5 - 60.0 % TBH MONOCYTES PERCENT AUTO 10.9 1.7 - 12.0 % TBH TBH EO % 4.4 0.9 - 7.0 % TBH BASOPHILS PERCENT AUTO 1.0 0.2 - 2.0 % TBH IMMATURE GRANULOCYTES PCT AUTO 0.3 0.0 - 0.5 % TBH NEUTROPHILS ABSOLUTE AUTO 4.3 1.4 - 6.5 10 3/uL TBH LYMPHOCYTES ABSOLUTE AUTO 1.8 1.2 - 3.8 10 3/uL TBH MONOCYTES ABSOLUTE AUTO 0.8 0.3 - 0.8 10 3/uL TBH TBH EO # 0.3 0.0 - 0.7 10 3/uL TBH BASOPHILS ABSOLUTE AUTO 0.1 0.0 - 0.1 10 3/uL TBH IMMATURE GRANULOCYTES ABS AUTO 0.02 0.00 - 0.03 10 3/uL [facility]H 06/29/2025 7:19 AM EDT 06/29/2025 7:20 AM EDT Narrative [facility] - 06/29/2025 7:28 AM EDT us Daniel Calvoo DO [facility] * ([facility]) TB DRUG SCREEN RAPID (URINE) (06/29/2025 7:15 AM EDT) Pathologist [facility] CANNABINOID SCREEN URINE NEGATIVE NEGATIVE TBH PHENCYCLIDINE SCREEN URINE NEGATIVE NEGATIVE TBH COCAINE SCREEN URINE NEGATIVE NEGATIVE TBH METHAMPHETAMINES SCREEN URINE POSITIVE(A) NEGATIVE TBH OPIATE SCREEN URINE NEGATIVE NEGATIVE TBH AMPHETAMINE SCREEN URINE POSITIVE(A) NEGATIVE TBH BENZODIAZEPINES SCREEN URINE POSITIVE(A) NEGATIVE TBH TRICYCLIC ANTIDEPRESSANT URINE NEGATIVE NEGATIVE TBH METHADONE SCREEN URINE NEGATIVE NEGATIVE TBH BARBITURATES SCREEN URINE NEGATIVE NEGATIVE TBH OXYCODONE SCREEN URINE NEGATIVE NEGATIVE TBH BUPRENORPHINE SCREEN URINE NEGATIVE NEGATIVE TBH Comment: DRUG CLASS TEST SYSTEM CUT-OFF CONCENTRATIONS ARE FOLLOWS: AMP (Amphetamine): 500 ng/mL BAR (Barbiturates): 200 ng/mL BZO (Benzodiazepines): 150 ng/mL BUP (Buprenorphine): 10 ng/mL EVELINE (Cocaine): 150 ng/mL mAMP (Methamphetamine): 500 ng/mL MTD (Methadone): 200 ng/mL OPI (Opiates): 100 ng/mL OXY (Oxycodone): 100 ng/mL PCP (Phencyclidine): 25 ng/mL THC (Cannabinoids): 50 ng/mL TCA (Trycyclic Antidepressants): 300 ng/mL 06/29/2025 7:15 AM EDT 06/29/2025 7:20 AM EDT Narrative [facility] - 06/29/2025 7:49 AM EDT us Daniel Mccall DO CLINISYNC Final Result [facility] from Last 3 Months Insurance [employer] Care Teams Manufacturing Engineering Professor Relationship Specialty Start Date End Date Hortensia Lees NP [address] [place] [address] Referring Physician 03/14/24
--- OUTSIDE RECORDS SUMMARY | 2025-07-27 11:45 | XMS_ITS | Encounter Summary ---
Author Organization [facility] Address [address] [place] [address] Care Team Providers Care Gas Adjuster Name Role Phone Hortensia Lees ROASTER HELPER Unavailable [phone] Encounter Details Date Type Department Care Team (Late st Contact Info) Description 04/16/2025 Abstract [facility] [address] [place] [address] Daniel Mccall DO [address] [place]en [place], [facility] Social History Tobacco Use Types Packs/Day Years [...] as of this encounter Plan of Treatment Not on file documented as of this encounter Visit Diagnoses Not on filedocumented in this encounter Care Teams Gas Adjuster Relationship Specialty Start Date End Date Hortensia Lees NP [address] [place] [address] Referring Physician 03/14/24 documented as of this encounter
--- OUTSIDE RECORDS SUMMARY | 2025-07-27 11:46 | XMS_ITS | Encounter Summary ---
Author Organization [facility] Address [address] [place] [address] Care Team Providers Care Fitness Management Director Name Role Phone Hortensia Lees SALESFORCE CONSULTANT Unavailable Encounter Details Date Type Department Care Team (Late st Contact Info) Description 06/29/2025 Abstract [facility] [address] [place] [phone] Daniel Mccall DO [address] [place]en [place], [facility] Social History Tobacco Use Types Packs/Day Years [...] on filedocumented in this encounter Care Teams Fitness Management Director Relationship Specialty Start Date End Date Hortensia Lees NP [address] [place] [address] Referring Physician 03/14/24 documented as of this encounter
--- OUTSIDE RECORDS SUMMARY | 2025-07-27 11:46 | XMS_ITS | Encounter Summary ---
Author Organization [facility] Address [address] [place] [address] Care Team Providers Care Terrazzo Finisher Helper Name Role Phone Hortensia Lees REHABILITATION ATTENDANT Unavailable [phone] Encounter Details Date Type Department Care Team (Late st Contact Info) Description 07/23/2025 Results Follow-Up [facility] [address] [address] Tonia Kumar LPN [address] [id number] URINARY TRACT INFECTION (HTRX) Social History Tobacco Use Types Packs/Day Years [...] on file documented as of this encounter Miscellaneous Notes * Result Encounter Note - Tonia Kumar LPN - 07/23/2025 2:11 PM EDT We discussed this documented in this encounter Plan of Treatment Not on file documented as of this encounter Visit Diagnoses Not on filedocumented in this encounter Care Teams Terrazzo Finisher Helper Relationship Specialty Start Date End Date Hortensia Lees NP [address] [place] [address] Referring Physician 03/14/24 documented as of this encounter
--- OUTSIDE RECORDS SUMMARY | 2025-07-27 11:46 | XMS_ITS | Encounter Summary ---
Author Organization [facility] Address [address] [place] [address] Care Team Providers Care [employer] Principal Name Role Phone Hortensia Lees CORN GROWER Unavailable [phone] Encounter Details Date Type Department Care Team (Late st Contact Info) Description 07/18/2025 External Result Encounter [facility] External Department Unsolicited Daniel Mccall, DO [address] [place] [address] [id number] Social History Tobacco Use Types Packs/Day Years [...] on file documented as of this encounter Procedures Procedure Name Priority Date/Time Associated Diagnosis Comments URINARY TRACT INFECTION (HTRX) Routine 07/18/2025 5:51 PM EDT documented in this encounter Results * (ABNORMAL) URINARY TRACT INFECTION (HTRX) (07/18/2025 5:51 PM EDT) ACINETOBACTER BAUMANII 0 19.961 - 24.689 ppm 07/20/2025 7:57 AM EDT [facility] ACINETOBACTER BAUMANII Not Detected 19.961 - 24.689 ppm 07/20/2025 7:57 AM EDT [facility] CITROBACTER FREUNDII 0 23.000 - 32.015 ppm 07/20/2025 7:57 AM EDT [facility] CITROBACTER FREUNDII Not Detected 23.000 - 32.015 ppm 07/20/2025 7:57 AM EDT [facility] ENTEROBACTER AEROGENES, CLOACAE 0 23.000 - 32.290 ppm 07/20/2025 7:57 AM EDT [facility] ENTEROBACTER AEROGENES, CLOACAE Not Detected 23.000 - 32.290 ppm 07/20/2025 7:57 AM EDT [facility] ENTEROCOCCUS FAECALIS, FAECIUM 0 26.000 - 33.043 ppm 07/20/2025 7:57 AM EDT [facility] ENTEROCOCCUS FAECALIS, FAECIUM Not Detected 26.000 - 33.043 ppm 07/20/2025 7:57 AM EDT [facility] ESCHERICHIA COLI 16.324(A) 23.000 - 28.500 ppm 07/20/2025 7:57 AM EDT [facility] ESCHERICHIA COLI Detected(A) 23.000 - 28.500 ppm 07/20/2025 7:57 AM EDT [facility] KLEBSIELLA PNEUMONIAE, OXYTOCA 0 23.000 - 31.865 ppm 07/20/2025 7:57 AM EDT [facility] KLEBSIELLA PNEUMONIAE, OXYTOCA Not Detected 23.000 - 31.865 ppm 07/20/2025 7:57 AM EDT [facility] MORGANELLA MORGANII 0 19.961 - 24.689 ppm 07/20/2025 7:57 AM EDT [facility] MORGANELLA MORGANII Not Detected 19.961 - 24.689 ppm 07/20/2025 7:57 AM EDT [facility] PROTEUS MIRABILIS, VULGARIS 0 23.000 - 28.500 ppm 07/20/2025 7:57 AM EDT [facility] PROTEUS MIRABILIS, VULGARIS Not Detected 23.000 - 28.500 ppm 07/20/2025 7:57 AM EDT [facility] PSEUDOMONAS AERUGINOSA 0 23.000 - 31.801 ppm 07/20/2025 7:57 AM EDT [facility] PSEUDOMONAS AERUGINOSA Not Detected 23.000 - 31.801 ppm 07/20/2025 7:57 AM EDT [facility] STAPHYLOCOCCUS AUREUS 0 26.000 - 31.595 ppm 07/20/2025 7:57 AM EDT [facility] STAPHYLOCOCCUS AUREUS Not Detected 26.000 - 31.595 ppm 07/20/2025 7:57 AM EDT [facility] STREPTOCOCCUS AGALACTIAE (GROUP B STREP) 27.554(A) 26.000 - 32.435 ppm 07/20/2025 7:57 AM EDT [facility] STREPTOCOCCUS AGALACTIAE (GROUP B STREP) Detected(A) 26.000 - 32.435 ppm 07/20/2025 7:57 AM EDT [facility] ENDER ALBICANS, PARAPSILOSIS, TROPICALIS 0 23.000 - 30.347 ppm 07/20/2025 7:57 AM EDT [facility] ENDER ALBICANS, PARAPSILOSIS, TROPICALIS Not Detected 23.000 - 30.347 ppm 07/20/2025 7:57 AM EDT [facility] ENDER GLABRATA 0 23.000 - 31.618 ppm 07/20/2025 7:57 AM EDT [facility] ENDER GLABRATA Not Detected 23.000 - 31.618 ppm 07/20/2025 7:57 AM EDT [facility] ENDER KRUSEI 0 23.000 - 30.873 ppm 07/20/2025 7:57 AM EDT [facility] ENDER KRUSEI Not Detected 23.000 - 30.873 ppm 07/20/2025 7:57 AM EDT [facility] SERRATIA MARCESCENS 0 23.000 - 31.581 ppm 07/20/2025 7:57 AM EDT [facility] SERRATIA MARCESCENS Not Detected 23.000 - 31.581 ppm 07/20/2025 7:57 AM EDT [facility] STREPTOCOCCUS PYOGENES (GROUP A STREP) 0 19.961 - 24.689 ppm 07/20/2025 7:57 AM EDT [facility] STREPTOCOCCUS PYOGENES (GROUP A STREP) Not Detected 19.961 - 24.689 ppm 07/20/2025 7:57 AM EDT [facility] STAPHYLOCOCCUS EPIDERMIDIS, HAEMOLYTICUS, LUGDUNENSIS, SAPROPHYTICUS (URINA 0 19.961 - 24.689 ppm 07/20/2025 7:57 AM EDT [facility] STAPHYLOCOCCUS EPIDERMIDIS, HAEMOLYTICUS, LUGDUNENSIS, SAPROPHYTICUS (URINA Not Detected 19.961 - 24.689 ppm 07/20/2025 7:57 AM EDT [facility] STAPHYLOCOCCUS EPIDERMIDIS, HAEMOLYTICUS, LUGDUNENSIS, SAPROPHYTICUS (URINA 0 19.961 - 24.689 ppm 07/20/2025 7:57 AM EDT [facility] STAPHYLOCOCCUS EPIDERMIDIS, HAEMOLYTICUS, LUGDUNENSIS, SAPROPHYTICUS (URINA Not Detected 19.961 - 24.689 ppm 07/20/2025 7:57 AM EDT [facility] TET B, TET M 26.354(A) 23.000 - 27.500 ppm 07/20/2025 7:57 AM EDT [facility] TET B, TET M Detected(A) 23.000 - 27.500 ppm 07/20/2025 7:57 AM EDT [facility] Urine 07/18/2025 5:51 PM EDT 07/20/2025 1:52 AM EDT us Daniel Mccall DO LAB BLOOD ORDERABLES Final Resul t [facility] [address] [address] documented in this encounter Visit Diagnoses Not on filedocumented in this encounter Care Teams [employer] Principal Relationship Specialty Start Date End Date Hortensia Lees NP [address] [place] [address] Referring Physician 03/14/24 documented as of this encounter
--- OUTSIDE RECORDS SUMMARY | 2025-07-27 11:46 | XMS_ITS | Encounter Summary ---
Author Organization [facility] Address [address] [place] [address] Care Team Providers Care Monorail Charger Operator Name Role Phone Hortensia Lees STEEL FIXER Unavailable [phone] Encounter Details Date Type Department Care Team (Late st Contact Info) Description 07/20/2025 Telephone [facility] [address] [place] [address] [place] [address] Roxy Trent MA Social History Tobacco Use Types Packs/Day Years [...] as of this encounter Miscellaneous Notes * Telephone Encounter - Roxy Trent MA - 07/20/2025 11:18 AM EDT Left detailed message for pt regarding UTI results. Advised pt discontinue Macrobid and that we would send in augmentin. Asked pt to call office with any questions documented in this encounter Plan of Treatment Not on file documented as of this encounter Visit Diagnoses Diagnosis Urinary tract infection with hematuria, site unspecified documented in this encounter Care Teams Monorail Charger Operator Relationship Specialty Start Date End Date Hortensia Lees NP [address] [place] [address] Referring Physician 03/14/24 documented as of this encounter
--- OUTSIDE RECORDS SUMMARY | 2025-07-27 11:46 | XMS_ITS | Encounter Summary ---
Author Organization [facility] Address [address] [place] [address] Care Team Providers Care Racebook Writer Name Role Phone Hortensia Lees CURATOR HERBARIUM Unavailable [phone] Encounter Details Date Type Department Care Team (Late st Contact Info) Description 06/29/2025 Abstract [facility] [address] [place] [id number] Daniel Mccall DO [address] [place], [facility] Social History Tobacco Use Types Packs/Day Years [...] on filedocumented in this encounter Care Teams Racebook Writer Relationship Specialty Start Date End Date Hortensia Lees NP [address] [place] [address] Referring Physician 03/14/24 documented as of this encounter
--- OUTSIDE RECORDS SUMMARY | 2025-07-27 11:46 | XMS_ITS | Encounter Summary ---
Author Organization [facility] Address [address] [place] [address] Care Team Providers Care Setter Off Name Role Phone Hortensia Lees END USER SUPPORT SPECIALIST Unavailable [phone] Encounter Details Date Type Department Care Team (Late st Contact Info) Description 07/20/2025 Abstract [facility] [address] [place] [address] [place] [address] Roxy Trent MA Social History Tobacco Use [...] on filedocumented in this encounter Care Teams Setter Off Relationship Specialty Start Date End Date Hortensia Lees NP [address] [place] [address] Referring Physician 03/14/24 documented as of this encounter
--- OUTSIDE RECORDS SUMMARY | 2025-07-27 11:46 | XMS_ITS | Patient Health Record ---
Author Organization [facility] Servic es Address [address] [place] [address] Care Team Providers Care Boat Repairer Name Role Phone Andrew Lakshmi Primary Care Provider Breana Milian Unavailable [phone] Jesus Paniagua Unavailable [phone] Hortensia Coleman Unavailable [phone] Kathy Santamaria Unavailable [phone] Jannette Gonzales Unavailable [phone] Allergies Allergen (clinical drug ingredient) Drug/Non Drug Allergy documented on EMR Reaction Allergy Type Onset Date Status sulfamethoxazole / trimethoprim Bactrim MOUTH BURNIGAND PEELING Drug Allergy Active Results Component Value Reference Range Notes Urinalysis un-automated Reviewed date:01/29/2025 03:30:07 PM Interpretation: Performing Lab: Notes/Report: Urine-Color yellow Appearance cloudy Specific [place] 1.005 pH 7.5 Glucose neg Protein neg [...] testing is not performed at this lab. Director Of Search Engine Optimization to CFU/mL equivalent thresholds were established based on studies using known CFU/mL urine specimens performed at [facility] in [place], [place]. Testing performed by [facility] ([address], [place] [address]; CLIA# [id number]; Wet Crown Blocking Operator Alanna Herrera, PhD, [facility])). This test was developed, and its performance characteristics determined by [employer] It has not been cleared or approved [...] parapsilosis, tropicalis 0.000 19.961 - 30.770 ppm Ac albicans, parapsilosis, tropicalis Not Detected 19.961 - [...] testing is not performed at this lab. Director Of Search Engine Optimization to CFU/mL equivalent thresholds were established based on studies using known CFU/mL urine specimens performed at [facility] in [place], [place]. Testing performed by [employer] [facility] ([address], [place] [address]; CLIA# [id number]; Wet Crown Blocking Operator Alanna Herrera, PhD, [facility])). This test was developed, and its performance characteristics determined by [employer] It has not been cleared or approved [...] Not Detected 19.961 - 24.689 pp m Testosterone F&T Reviewed date:12/31/2024 10:20:32 AM Interpretation: Performing Lab: Notes/Report: [facility] [address] [place] [address] Original Ordering Provider: ABAD IRVIN TESTOSTERONE.FREE 1.0 0.0-4.2 pg/mL Performed at: [facility] [address] [place] [address] [id number] PhD Matt Branham Performed at: [facility] [address] [id number] MD Inderjit Gutierrez TESTOSTERONE 12 4-50 ng/dL Performing Lab see note UNK - [facility] unless otherwise specified [address] [address] T3 Total Reviewed date:12/31/2024 10:20:32 AM Interpretation: Performing Lab: Notes/Report: [facility] [address] [place] [address] Original Ordering Provider: ABAD IRVIN TRIIODOTHYRONINE 87 71-180 ng/dL Performed at: [address] [id number] PhD Matt Branham Performing Lab see note [facility] unless otherwise specified [address] [place] [address] FSH and LH Reviewed date:12/31/2024 10:20:32 AM Interpretation: Performing Lab: Notes/Report: [facility] [address] [place] [address] Original Ordering Provider: ABAD IRVIN FOLLITROPIN 5.5 Adult Female Range Follicular phase 3.5 - 12.5 Ovulation phase 4.7 - 21.5 Luteal phase 1.7 - 7.7 Postmenopausal 25.8 - 134.8 Performed at: [address] [id number] PhD Matt Branham LUTROPIN 6.3 Adult Female Range Follicular phase 2.4 - 12.6 Ovulation phase 14.0 - 95.6 Luteal phase 1.0 - 11.4 Postmenopausal 7.7 - 58.[address] see note [facility] unless otherwise specified [address] [place] [address] Estradiol Reviewed date:12/31/2024 10:20:32 AM Interpretation: Performing Lab: Notes/Report: [facility] [address] [place] [address] Original Ordering Provider: ABAD IRVIN ESTRADIOL 105.0 Adult Female Range Follicular phase 12.5 - 166.0 Ovulation phase 85.8 - 498.0 Luteal phase 43.8 - 211.0 Postmenopausal <6.0 - 54.7 1st trimester 215.0 - >4300.0 Melia ECLIA methodology Performed at: [id number] [place], [place] [id number] PhD Matt Branham Performing Lab see note [facility] unless otherwise specified [address] [place], [place] [id number] Cortisol Reviewed date:12/31/2024 10:20:49 AM Interpretation: Performing Lab: Notes/Report: [facility] [address] [place] [address] Original Ordering Provider: ABAD IRVIN CORTISOL 12.5 6.2-19.4 microgram/dL Please Note: The reference interval and flagging for this test is for an AM collection. If this is a PM collection please use: Cortisol PM: 2.3-11.9 Performed at: [address] [id number] PhD Matt Branham Performing Lab see note [facility] unless otherwise specified [address] [place] [address] Vitamin D 25 Hydroxy Reviewed date:05/03/2025 05:45:12 [...] date:05/03/2025 05:41:00 PM Interpretation: Performing Lab: Notes/Report: CMP Reviewed date:12/31/2024 10:20:32 AM Interpretation: Performing Lab: Notes/Report: [facility] [address] [place] [address] Original Ordering Provider: ABAD IRVIN GLUCOSE 90 [...] ALBUMIN/GLOBULIN 1.4 1.1-2.2 Performing Lab see note UN - [facility] unless otherwise specified [address] [address] eGFR Reviewed date:12/31/2024 10:20:32 AM Interpretation: Performing Lab: Notes/Report: [facility] [address] [id number] Original Ordering Provider: ABAD IRVIN eGFR 67 >=59 mL/min/1.73 m2 Performing Lab see note [facility] unless otherwise specified [address] [address] Magnesium Reviewed date:12/31/2024 10:20:32 AM Interpretation: Performing Lab: Notes/Report: [facility] [address] [place] [address] Original Ordering Provider: HAND SILVERING SUPERVISOR HORTENSIA J ALBARO MAGNESIUM 1.9 1.3-2.4 mg/dL Performing Lab see note [facility] unless otherwise specified [address] [address] Progesterone Reviewed date:12/31/2024 10:20:32 AM Interpretation: Performing Lab: Notes/Report: [facility] [address] [place] [address] Original Ordering Provider: ABAD IRVIN Progesterone Lvl 0.47 'F NON FOLLICULAR = 0.10 - 0.60' 'LUTEAL = 3.00 - 17.5' 'MIDLUTEAL = 3.30 - 18.6' 'POST-MENOPAUSE = 0.10 - 0.40' '-FIRST TRIMESTER = 8.30 - 66.5' 'SECOND TRIMESTER = 18.9 - 66.1' 'THIRD TRIMESTER = 35.8 - 312.4' 'MALES = 0.14 - 2.06' Performing Lab see note [facility] unless otherwise specified [address] [place] [address] T4 & TSH Reviewed date:12/31/2024 10:20:32 AM Interpretation: Performing Lab: Notes/Report: [facility] [address] [place] [address] Original Ordering Provider: ABAD IRVIN THYROXINE 7.3 4.6-9.1 microgram/dL THYROTROPIN 11.86 0.34-5.60 mcIU/mL Performing Lab see note [facility] unless otherwise specified [address] [place] [address] Vit B12 Reviewed date:12/31/2024 10:20:32 AM Interpretation: Performing Lab: Notes/Report: [facility] [address] [place] [address] Original Ordering Provider: ABAD IRVIN COBALAMINS 1207 50-1500 pg/mL Performing Lab see note [facility] unless otherwise specified [address] [place] [address] Vitamin D 25 Hydroxy Reviewed date:12/31/2024 10:20:32 AM Interpretation: Performing Lab: Notes/Report: [facility] [address] [place] [address] Original Ordering Provider: ABAD IRVIN CALCIDIOL 60.1 30.0-100.0 ng/mL Performing Lab see note UNK - [facility] unless otherwise specified [address], [place] [address] GNURI - Genitourinary Infect ion (HTRx) Reviewed date:08/06/2024 12:05:46 PM Interpretation: Performing Lab: Notes/Report: Real-Time polymerase chain reaction (TaqMan qPCR) was utilized for detection for all tested organisms and resistance genes. COVID-19 testing separately performed using [employer] COVID-19 Combo kit. Initiation of antimicrobial therapy prior to testing may affect results and can lead to the detection of non-living microorganisms. Detection of microbes must be correlated with current/recent antibiotic usage and patient signs and symptoms. Microbial sensitivity testing is not performed at this lab. Director Of Search Engine Optimization to CFU/mL equivalent thresholds were established based on studies using known CFU/mL urine specimens performed at [employer] in [place], [place]. Testing performed by [facility] ([place] [address]; CLIA# [id number]; Wet Crown Blocking Operator Alanna Herrera, PhD, [facility])). This test was developed, and its performance characteristics determined by [employer] It has not been cleared or approved [...] Anaerococcus prevotii Detected 19.961 - 24.689 ppm GNURI - Complicated Genitour inary Infection (HTRx) [...] testing is not performed at this lab. Director Of Search Engine Optimization to CFU/mL equivalent thresholds were established based on studies using known CFU/mL urine specimens performed at [employer] in [place], [place]. [facility] ([address], [facility] [place] [address]; CLIA# [id number]; Wet Crown Blocking Operator Alanna Herrera, PhD, [facility])). This test was developed, and its performance characteristics determined by [employer] It has not been cleared or approved [...] (Nakaseomyces glabratus) 0.000 23.000 - 32.138 ppm Ac glabrata (Nakaseomyces glabratus) Not Detected 23.000 - [...] Not Detected 19.961 - 24.689 pp m AURAL - Otolaryngology (HTRx ) Reviewed date:03/07/2025 [...] testing is not performed at this lab. Director Of Search Engine Optimization to CFU/mL equivalent thresholds were established based on studies using known CFU/mL urine specimens performed at [employer] in [place], [place]. Testing performed by [facility] [place] ([address] [place] [address]; CLIA# [id number]; Wet Crown Blocking Operator Alanna Herrera, PhD, [facility])). This test was developed, and its performance characteristics determined by [employer] It has not been cleared or approved [...] tet M Detected 23.000 - 27.778 ppm Urinalysis un-automated Reviewed date:11/16/2024 05:28:49 PM Interpretation: Performing Lab: Notes/Report: Urine-Color yellow Appearance slightly cloudy Specific [place] 1.005 pH 7.5 Glucose neg Protein neg Occult Blood neg Bilirubin neg Urobilinogen,Semi-Qn 0.2 Nitrite, Urine neg Ketones neg WBC Esterase neg Urinalysis automated Reviewed date:08/02/2024 06:06:35 PM Interpretation: Performing Lab: Notes/Report: Urine-Color yellow Appearance cloudy Specific [place] 1.015 pH 7.0 Glucose neg Protein neg Occult Blood neg Bilirubin neg Urobilinogen,Semi-Qn 1 Nitrite, Urine pos Ketones neg WBC Esterase neg Reason For Referral Reason PT CALLED 3X Pleas e send culture results from [facility] from leg Diagnosis 1 Pruritic rash (L28.2 ) Referral Organization [facility] Rapelje Referring Provider First Name Hortensia Referring Provider Last Name Jared Referring Provider Speciality [facility] sunshine Referred Provider [facility] Referred Provider Specialty Dermatology Referral Priority Routine [...] as directed; Duration: 6 days 11/26/2023 Not-Taking Clotrimazole 1 % 1 application Externally Twice a day; Duration: 14 days 01/09/2025 Active ARIPiprazole 15 MG TAKE 1 TABLET BY MOUTH DAILY; Duration: 30 Active Triamcinolone Acetonide 0.5 % 1 application Externally once a day; Duration: 5 days 01/09/2025 Active Ambien 5 MG 1 tablet at bedtime as needed Orally Once a day; Duration: 30 days 07/20/2025 08/19/2025 Active Fetzima 120 MG TAKE 1 CAPSULE BY MOUTH DAILY; Duration: 30 days Active ALPRAZolam 0.25 MG 1 tablet as needed Orally Twice a day; Duration: 30 days 07/20/2025 Active Social History Tobacco Use: Social History [...] W/U Status Risk Notes Problem Tobacco user (390445820) Nicotine dependence, unspecified, uncomplicated (F17.200) Active confirmed Problem Menstrual disorder (733935023) Irregular menses (N92.6) Active confirmed Problem Chronic insomnia (043927583) Chronic insomnia (F51.04) Active confirmed Problem Chronic fatigue syndrome (78142235) Chronic fatigue (R53.82) Active confirmed Problem Acquired hypothyroidism (235362340) Acquired hypothyroidism (E03.9) Active confirmed Problem Posttraumatic stress disorder (79650478) PTSD (post-traumatic stress disorder) (F43.10) Active confirmed Problem Insomnia disorder related to another mental disorder (31677850) Psychophysiological insomnia (F51.04) Active confirmed Problem Episodic mood disorder (24559049053734) Episodic mood disorder (F39) Active confirmed Problem Migraine with aura (2222594) Migraine with aura and without status migrainosus, not intractable (G43.109) Active confirmed Problem Generalized anxiety disorder (03518962) ANUEL (generalized anxiety disorder) (F41.1) Active confirmed Problem Methicillin resistant Staphylococcus aureus infection (519251315) MRSA infection (A49.02) Active confirmed Vital Signs Heart Rate 91 /min 06/25/2025 Temperature 97.6 degrees Fahrenheit 05/29/2025 Oximetry 92 % 06/25/2025 Blood pressure diastolic 80 mm Hg 06/25/2025 Height 62 in 06/25/2025 Blood pressure systolic 118 mm Hg 06/25/2025 Weight 136.6 lbs 06/25/2025 BMI 24.98 kg/m2 06/25/2025 Encounters Encounter Location Date Provider Diagnosis [facility] [address] [place] [address] 08/06/2024 Hortensia Coleman Multiple-resistant Staphylococcus aureus infection B95.7 ; History of methicillin resistant Staph aureus Z86.14 and Cutaneous fungal infection B36.9 [address] [place] [address] 08/07/2024 Hortensia Coleman [facility] [address] [place] [address] 08/29/2024 Hortensia Coleman [address] [place] [address] 09/11/2024 Hortensia Coleman Cutaneous fungal infection B36.9 [facility] [address] [place] [address] 11/02/2024 Hortensia Coleman [facility] [address] [place] [address] 11/21/2024 Hortensia Coleman [facility] [address] [place] [address] 12/29/2024 Hortensia Coleman [facility] [address] [place] [address] 01/01/2025 Hortensia Coleman [facility] [address] [place] [address] 01/03/2025 Hortensia Coleman Acquired hypothyroidism E03.9 [facility] [address] [place] [address] 01/04/2025 Hortensia Maguiresoledad [address] [place] [address] 01/08/2025 Hortensia Coleman [address] [place] [address] 01/08/2025 Hortensia Coleman [address] [place] [address] 01/09/2025 Hortensia Coleman [address] [place] [address] 01/09/2025 Breana Slingwine Episodic mood disord er [address] [facility] [address] [place] [address] 01/11/2025 Breana Slingwine Episodic mood disord er 9 [facility] [place] [address] [place] [address] 01/15/2025 Hortensia Coleman [facility] [address] [place] [address] 01/17/2025 Breana Slingwine [facility] [address] [place] [address] 01/30/2025 Hortensia Coleman [address] [place] [address] 02/05/2025 Breana Slingwine [facility] [address] [place] [address] 02/07/2025 Breana Slingwine [facility] [address] [place] [address] 02/15/2025 Breana Slingwine [facility] [address] [place] [address] 03/07/2025 Hortensia Jared MRSA infection A49.02 [facility] [address] [place] [address] 03/07/2025 Hortensia Jared Chronic insomnia F51.04 [facility] [address] [place] [address] 04/19/2025 Breana Slingwine ANUEL (generalized anx iety disorder) F41.1 and Psychophysiological insomnia F51.04 [facility] [address] [place] [address] 06/12/2025 Breana Slingwine ANUEL (generalized anx iety disorder) F41.1 and Psychophysiological insomnia F51.04 [facility] [address] [place] [address] 06/14/2025 Breana Slingwine Episodic mood disord er F39 [facility] [address] [place] [address] 06/18/2025 Breana Slingwine [facility] [address] [place] [address] 06/19/2025 Breana Slingwine [facility] [address] [place] [address] 06/25/2025 Lakshmi Morales Acquired hypothyroid ism E03.9 [facility] [address] [place] [address] 07/20/2025 Breana Slingwine Psychophysiological insomnia F51.04 and ANUEL (generalized anxiety disorder) F41.1 [address] [address] 08/02/2024 Hortensia Coleman Acute UTI N39.0 ; Pruritic rash L28.2 and Acquired hypothyroidism E03.[address] [address] 11/16/2024 Hortensia Coleman Pruritic rash L28.2 ; History of UTI Z87.440 and Nicotine dependence, unspecified, uncomplicated F17.[address] [address] 01/16/2025 Jannette Christian Ear infection H66.90 and Nicotine dependence, unspecified, uncomplicated F17.[address] [place] [address] 01/29/2025 Hortensia Coleman Dysuria R30.0 ; Bronchitis J40 and Acute cystitis without hematuria N30.[address] [address] 03/06/2025 Hortensia Coleman Other infective acute otitis externa of both ears H60.[address] [place] [address] 12/13/2024 Hortensia Coleman Nicotine dependence, unspecified, uncomplicated F17.200 ; Chronic fatigue R53.82 ; Hair thinning L65.9 ; Irregular menses N92.6 ; Nausea R11.0 and Viral gastroenteritis A08.[address] [address] 01/05/2025 Hortensia Coleman Chronic fatigue R53.82 and Acquired hypothyroidism E03.9 [address] [address] 05/29/2025 Lakshmi Morales Bronchitis J40 and A cute UTI N39.[address] [place] [address] 06/25/2025 Breana Rukhsana PTSD (post-traumatic stress disorder) F43.10 ; Episodic mood disorder F39 ; ANUEL (generalized anxiety disorder) F41.1 and Psychophysiological insomnia F51.[address] [address] 03/02/2025 Breana Slingwine PTSD (post-traumatic stress disorder) F43.10 ; ANUEL (generalized anxiety disorder) F41.1 ; Episodic mood disorder F39 and Psychophysiological insomnia F51.[address] [address] 11/22/2024 Breana Slingwine PTSD (post-traumatic stress disorder) F43.10 ; ANUEL (generalized anxiety disorder) F41.1 and Episodic mood disorder F39 [address] [address] 01/31/2025 Breana Slingwine PTSD (post-traumatic stress disorder) F43.10 ; ANUEL (generalized anxiety disorder) F41.1 and Episodic mood disorder F39 [address] [address] 01/03/2025 Breana Slingwine PTSD (post-traumatic stress disorder) F43.10 ; ANUEL (generalized anxiety disorder) F41.1 and Episodic mood disorder F39 [address] [address] 04/23/2025 Breana Slingwine PTSD (post-traumatic stress disorder) F43.10 ; ANUEL (generalized anxiety disorder) F41.1 ; Episodic mood disorder F39 and Psychophysiological insomnia F51.[address] [address] 03/01/2025 Jesus Paniagua [address] [address] 11/29/2024 Jesus Paniagua [address] [place] [address] 09/14/2024 Jesus Paniagua Assessments Encounter Date Diagnosis (ICD [...] feeling better. 05/29/2025 Bronchitis (ICD-10 - J40) Flaquita albuterol MDI PRN as directed. I encourage patient to use inhaler. She admits she has not been using. Continue Prednisone until gone. She does state she had similiar diagnosis several months ago. She did quit smoking 3 months ago. 05/29/2025 Acute UTI (ICD-10 - N39.0) Increase fluids. Continue Keflex until completed. 04/19/2025 ANUEL (generalized anxiety disorder) (ICD-10 - F41.1) 04/23/2025 PTSD (post-traumatic stress disorder) (ICD-10 - F43.10) 06/12/2025 ANUEL (generalized anxiety disorder) (ICD-10 - F41.1) 06/14/2025 Episodic mood disord er (ICD-10 - F39) 06/25/2025 PTSD (post-traumatic stress disorder) (ICD-10 - F43.10) 06/25/2025 Acquired hypothyroidism (ICD-10 - E03.9) 07/20/2025 Psychophysiological insomnia (ICD-10 - F51.04) 01/03/2025 PTSD (post-traumatic stress disorder) (ICD-10 - [...] Insight oriented/ Behavior modifying/ Supportive therapy . 01/29/2025 Dysuria (ICD-10 - R30.0) 01/29/2025 Bronchitis [...] it will take longer to get better 01/31/2025 PTSD (post-traumatic stress disorder) (ICD-10 - F43.10) 03/02/2025 PTSD (post-traumatic stress disorder) (ICD-10 - [...] A49.02) 03/07/2025 Chronic insomnia (ICD-10 - F51.04) 11/16/2024 Pruritic rash (ICD-1 0 - L28.2) Patient has history of rash returning anytime she is not treating it. Will put in referral for Dermatology and will send culture results with referral 11/16/2024 History of UTI (ICD- 10 - Z87.440) 11/22/2024 PTSD (post-traumatic stress disorder) (ICD-10 - [...] Insight oriented/ Behavior modifying/ Supportive therapy . 09/11/2024 Cutaneous fungal infection (ICD-10 - B36.9) 12/13/2024 Nicotine dependence, unspecified, uncomplicated (ICD-10 - F17.200) 12/13/2024 Chronic fatigue (ICD-10 - R53.82) Today we discussed symptoms that patient has been experiencing. Based on the symptoms and presentation, we will start by ordering lab work and once I have results I will contact patient so we can discuss results and next steps 01/03/2025 Acquired hypothyroidism (ICD-10 - E03.9) 01/05/2025 Chronic fatigue (ICD-10 - R53.82) 01/05/2025 Acquired hypothyroidism (ICD-10 - E03.9) Discussed lab reeulst today and made recommendations for patient to take magnesium supplement and to increase dose of thyroid medication and will follow up in 3 months to see how patient is doing. We will recheck labs at that time. 01/09/2025 Episodic mood disord er (ICD-10 - F39) 01/11/2025 Episodic mood disord er (ICD-10 - F39) 08/02/2024 Pruritic rash (ICD-1 0 - L28.2) [...] intercourse. Follow up with our office or cd storage and materials make up helper if no improvement of symptoms. 08/06/2024 Multiple-resistant Staphylococcus aureus infection (ICD-10 - B95.7) 08/06/2024 History of methicill in resistant Staph aureus (ICD-10 - Z86.14) 08/02/2024 Acquired hypothyroidism (ICD-10 - E03.9) Refills sent and will recheck labs at next visit. 01/16/2025 Nicotine dependence, unspecified, uncomplicated (ICD-10 - F17.200) 12/13/2024 Hair thinning (ICD-1 0 - L65.9) 11/22/2024 ANUEL (generalized anxiety disorder) (ICD-10 - [...] aware to contact office if symptoms worsen. 04/19/2025 Psychophysiological insomnia (ICD-10 - F51.04) 01/03/2025 ANUEL (generalized anxiety disorder) (ICD-10 - [...] contact information was provided to the patient/guardian. 01/29/2025 Acute cystitis witho ut hematuria (ICD-10 [...] intercourse. Follow up with our office or cd storage and materials make up helper if no improvement of symptoms. 07/20/2025 ANUEL (generalized anxiety disorder) (ICD-10 - F41.1) 06/25/2025 Episodic mood disord er (ICD-10 - [...] the office with any questions or concerns. 03/02/2025 ANUEL (generalized anxiety disorder) (ICD-10 - [...] patient/guardian. 06/12/2025 Psychophysiological insomnia (ICD-10 - F51.04) 04/23/2025 ANUEL (generalized anxiety disorder) (ICD-10 - [...] for any concerns about your medications. . 04/23/2025 Episodic mood disord er (ICD-10 - [...] patient crisis plan. Provided crisis hotline number. [facility] has good support system. Made aware to contact office if has an increase in suicidal thoughts. If outside of office hours, patient to go to the ER. Patient will call the office with any questions or concerns. 03/02/2025 Episodic mood disord er (ICD-10 - [...] patient crisis plan. Provided crisis hotline number. [facility] has good support system. Made aware to [...] for any concerns about your medications. . 01/03/2025 Episodic mood disord er (ICD-10 [...] patient crisis plan. Provided crisis hotline number. [facility] has good support system. Made aware to [...] patient crisis plan. Provided crisis hotline number. [facility] has good support system. Made aware to [...] Nicotine dependence, unspecified, uncomplicated (ICD-10 - F17.200) 11/22/2024 Episodic mood disord er (ICD-10 - [...] problems All questions and concerns discussed . 08/06/2024 Cutaneous fungal infection (ICD-10 - B36.9) [...] 1 week if symptoms are not improved. 06/25/2025 Psychophysiological insomnia (ICD-10 - F51.04) Educated [...] problems All questions and concerns discussed . 04/23/2025 Psychophysiological insomnia (ICD-10 - F51.04) insomnia [...] treatment. Education handout on gastro diet given 03/02/2025 Psychophysiological insomnia (ICD-10 - F51.04) insomnia [...] problems All questions and concerns discussed . 11/16/2024 Other Take medication as directed. Urine analysis shows abnormalities today in office. Urine culture will be sent to lab. Will call with results if resistance present to antibiotic. Increase fluid intake. Follow hygiene guidelines such as wiping front to back, avoid using perfumed lotions, bath beads, bubble bath. Prevention tips include urinating after sexual intercourse. Follow up with our office or cd storage and materials make up helper if no improvement of symptoms., Body Mass [...] Of Treatment Next Appt Details Provider Name:Breana clayton, 10/01/2025 04:15:00 PM, [address] [place] [address], [phone], Insurance Providers Payer Name Payer Address Payer Phone Subscriber Number Group Number Insured Name Patient Relationship to Insured Coverage Start Date Coverage End Date CIG[employer] by [facility] [address] [place] [phone] [id number] IVAN RECIO Self - patient is the insured [facility] [address] [place] [address] [id number] IVAN RECIO Self - patient is the insured 1 5 Secondary [facility] [address] [place] [address] [id number] IVAN RECIO Self - patient is the insured 3 Dental [employer] [facility] Medicaid [address] [place] [address] [id number] SHANNON RECIOCY Self - patient is the insured 3 [facility] [address] [place] [address] [id number] IVAN RECIO Self - patient is the insured 3 [facility] [address] [place] [address] [id number] IVAN RECIO Self - patient is the insured 3 [employer] [facility] [address] [place] [address] [id number] IVAN RECIO Self - patient is the insured 3 [employer] [facility] [address] [place] [address] [id number] IVAN RECIO Self - patient is the insured 3 Medical (General) History Medical History History ICD Code GERD DEPRESSION 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
== END 2025-07-27 11:42 | disposition home or self-care (01) ==
LOC: PST 11:41
PROVIDERS: Visit Provider Obstetrics & Gynecology
DX: Z01.818 Encounter for other preprocedural examination (principal); N93.9 Abnormal uterine and vaginal bleeding, unspecified; N92.0 Excessive and frequent menstruation with regular cycle

== ENCOUNTER 2025-08-03 07:09 | Day surgery (SDC) | payer OTHER, SELFPAY ==
[2025-08-03 07:28] LABS: Hematocrit 36.8 % (36.0-48.0); Hemoglobin 12.3 g/dL (12.0-16.0); Immature Granulocytes Abs Auto 0.01 10^3/uL (0.00-0.03); Immature Granulocytes Pct Auto 0.2 % (0.0-0.5); Lymphocytes Absolute Auto 1.4 10^3/uL (1.2-3.8); Mean Corpuscular HGB Conc 33.4 g/dL (29.9-35.2); Mean Corpuscular Hemoglobin 29.6 pg (26.7-34.0); Mean Corpuscular Volume 88.7 fL (81.0-99.0); Platelet Count 233 10^3/uL (150-450); Red Blood Count 4.15 10^6/uL (4.20-5.40); White Blood Count 5.2 10^3/uL (4.0-11.0)
[2025-08-03 07:30] VITALS: BP 107/81; PULSE 80; TEMP 36.2; O2SAT 100; BMI 23.6
[2025-08-03 07:39] LABS: Cannabinoid Screen Urine NEGATIVE (NEGATIVE); Methamphetamines Screen Urine POSITIVE (NEGATIVE); Tricyclic Antidepressant Urine NEGATIVE (NEGATIVE)
[2025-08-03 09:03] VITALS: BP 108/71; PULSE 88; TEMP 36.2; O2SAT 96
[2025-08-03 09:18] VITALS: BP 101/65; PULSE 78; O2SAT 95
[2025-08-03 09:33] VITALS: BP 119/68; PULSE 75; O2SAT 98
--- NOTE | 2025-08-06 12:47 | PM.ONB ---
Brief Operative Note Date of procedure: 08/03/25 Pre-op diagnosis general: menorrhagia Procedure: NAME OF PROCEDURE: [ ] Sigrid endometrial ablation with hysteroscopy. PROCEDURE: The patient was taken back to the OR where she was prepped and draped in the normal sterile fashion after being placed in the dorsal lithotomy position, after being placed under general anesthesia without difficulty.? A weighted speculum was placed into the vagina. The anterior lip was grasped with a single tooth tenaculum. The patient was then sounded to approximated 8cm. The patient?s cervix was gently dilated using hegardilators. The hysteroscope was passed through the cervix into the uterus where both ostia were seen. No gross evidence of polyps, fibroids or malignancy. The cervical length was noted to be 4 cm. The total cavity length is 4cm.? The Sigrid ablation apparatus was set to approximately 4cm in length. This was placed through the cervix and into the uterus. After the seal was tested, at that time the total ablation of 120 seconds was performed with the Sigrid withoutdifficulty. All instruments were removed from the vagina. Excellent hemostasis noted.? Sponge and lap count correct times 2.? Patient taken to recovery in stable condition. Anesthesia: MAC Surgeon: Daniel Mccall Estimated blood loss (mL): 5 Pathology: none sent Condition: stable Disposition: PACU Urinary Catheter Management Urinary Catheter Management Straight: Cath placed during this visit: no
== END 2025-08-03 09:33 | disposition home or self-care (01) ==
LOC: SURGOUT 07:10
PROVIDERS: Visit Provider Obstetrics & Gynecology
PROC: (CPT 952; principal; 2025-08-03 08:15)
DX: N92.0 Excessive and frequent menstruation with regular cycle (principal); N93.9 Abnormal uterine and vaginal bleeding, unspecified; R10.2 Pelvic and perineal pain; F17.210 Nicotine dependence, cigarettes, uncomplicated; Z87.440 Personal history of urinary (tract) infections; Z98.51 Tubal ligation status; Z87.01 Personal history of pneumonia (recurrent); E03.9 Hypothyroidism, unspecified; F32.A Depression, unspecified
CPT/HCPCS: 58563; 36415; 80307; 84702; 85025; J1885; J2250; J2405; J2704; J3010